=== PATIENT | female | born 2000 | race Caucasian/White ===

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

== ENCOUNTER 2025-10-19 09:59 | Inpatient (IN) | payer SELFPAY ==
[2025-10-19] VITALS (63 sets, daily range): BP systolic 130–202; BP diastolic 85–125; PULSE 107–136; RESP 15–31; TEMP 36.4–37.1; O2SAT 97–100; BMI 53.4
--- NOTE | 2025-10-19 10:21 | CTR_ITS ---
CT/CT abdomen pelvis w con* [id number] PROCEDURE INFORMATION: Exam: CT Abdomen And Pelvis With Contrast Exam date and time: 10/19/2025 12:01 PM Age: 24 years old Clinical indication: Other: Uppper abd pain; Prior surgery; Surgery date: 6+ months; Surgery type: Gallbladder; Additional info: Severe upper abd pain, HX of pancreatitis TECHNIQUE: Imaging protocol: Computed tomography of the abdomen and pelvis with contrast. Radiation optimization: All CT scans at this facility use at least one of these dose optimization techniques: automated exposure control; mA and/or kV adjustment per patient size (includes targeted exams where dose is matched to clinical indication); or iterative reconstruction. Contrast material: [id number]; Contrast volume: 100 ml; Contrast route: INTRAVENOUS (IV); COMPARISON: CT angio chest PE protcl [id number] 11/06/2020 1:37 AM RADIATION DOSE METRICS: Total DLP (mGy-cm): 1178.3 FINDINGS: Diaphragm: There is a small amount of fluid which is probably free fluid between the left hemidiaphragm and splenic surface. Liver: Normal. No mass. Gallbladder and biliary ducts: Cholecystectomy. Pancreas: The pancreas is mildly edematous. Adjacent and possibly arising from the tail of the pancreas and situated between the gastric wall and spleen is a 4 x 2.7 cm slightly thick-walled cystic structure. This extends to the splenic hilum. There are rounded areas of diminished attenuation within the spleen which probably represent extension of a pancreatic pseudocyst. A small amount of subcapsular fluid is present as well adjacent to the upper spleen. Spleen: See pancreas above. Adrenal glands: Normal. No mass. Kidneys and ureters: Normal. No hydronephrosis. Stomach and bowel: See Pancreas finding. Appendix: No evidence of appendicitis. Intraperitoneal space: See Spleen finding. Vasculature: Unremarkable. No abdominal aortic aneurysm. Lymph nodes: Unremarkable. No enlarged lymph nodes. Urinary bladder: Unremarkable as visualized. Reproductive: Unremarkable as visualized. Bones/joints: Unremarkable. No acute fracture. Soft tissues: Unremarkable. Incompletely imaged mild stranding of the fat in the mons pubis on the left side, incompletely imaged cellulitis or other infection unlikely. IMPRESSION: 1. 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 2. Slight ascites localized adjacent to the spleen.
--- NOTE | 2025-10-19 10:24 | ED_ITS ---
Documented by User: DEISI Linton 10/19/25 13:21 HPI - Abdominal Pain 2 General: Chief Complaint: Abdominal Pain Stated Complaint: abd pain, sob, n/v/d/f Time Seen by Provider: 10/19/25 10:05 Source: patient Mode of arrival: ambulatory Limitations: no limitations History of Present Illness: Patient is a 24-year-old female with past medical history of type 2 diabetes gallstone induced pancreatitis who presents to the emergency department complaining of severe upper abdominal pain for the past 3 days. States that a few months ago, while living in [place], she had her gallbladder removed due to episode of pancreatitis from gallstones, has been issue free up until the last few days. She notes severe upper/epigastric pain radiating to the back, comparable to her prior episodes of pancreatitis. Denies any alcohol consumption. She is a type II diabetic on Humalog, Accu-Chek at bedside currently 352. She is appearing in acute distress secondary to pain, tachypneic, tachycardic, and hypertensive likely secondary to her symptoms. She notes significant nausea and vomiting, and has not had a bowel movement in a couple of days. Fevers also reported at home. Shortness of breath, no chest pain. No urinary symptoms, no abdominal or flank bruising, no altered mentation, no other symptoms to note at this time. MD elicited complaint: abdominal pain Pertinent past history: other (Diabetes, pancreatitis) Onset (ago): day(s) Pain Consistency: constant Location: Epigastric Severity: severe Quality: stabbing and sharp Radiation: back Context: history of similar episodes Associated Symptoms: Reports constipation, fever(s), nausea and vomiting; Denies bloating, change in stool character, chills, diarrhea, dysuria and hematochezia Related Data Home Medications ?Medication ?Instructions ?Recorded ?Confirmed Humalog U-200 See Rx Instructions .Route . COMPLEX 10/19/25 10/19/25 Allergies Allergy/AdvReac Type Severity Reaction Status Date / Time No Known Allergies Allergy Verified 11/06/20 00:12 Review of Systems 2 General: Reports: 10 or more systems reviewed and unremarkable except in HPI and below Const: Reports: fever(s); Denies: chills, change in appetite, change in weight or diaphoresis ENMT: Denies: throat pain or hoarseness Card: Denies: chest pain, palpitations or lightheadedness Resp: Reports: dyspnea; Denies: productive cough or wheezing GI: Reports: abdominal pain, nausea, vomiting and constipation; Denies: diarrhea, bloating, change in stool character or hematochezia : Denies: flank pain, difficulty voiding, dysuria, urinary frequency or urinary urgency Musc: Reports: back pain; Denies: neck pain Skin/Breast: Denies: rash or new lesions Neuro: Denies: headache(s) or dizziness PFSH ED 2 PFSH: Medical History DM type 2 (diabetes mellitus, type 2) Surgical History No pertinent past surgical history Physical Exam 2 Const: COMMON NORMALS: patient oriented x3 and alert GENERAL APPEARANCE: c ooperative and anxious ORIENTATION/CONSCIOUSNESS: Yes awake OTHER: In acute distress secondary to pain, morbidly obese HENMT: COMMON NORMALS: normocephalic and atraumatic HEAD & SCALP: n ormocephalic and atraumatic OTHER: Moist oral mucous Eye: COMMON NORMALS: Equal, round and reactive pupils present, EOMs intact bilaterally and conjunctivae normal CONJUNCTIVA: Yes conjunctivae normal P UPIL: Yes Equal, round and reactive pupils present Neck/C-Spine: COMMON NORMALS: full ROM, supple and no meningeal signs Resp: COMMON NORMALS: No retractions, No use of accessory muscles and clear to auscultation bilaterally EFFORT & INSPECTION: Yes tachypneic AUSCULTATION: clear to auscultation bilaterally, no crackles, no rales, no rhonchi and no wheezes Cardio: COMMON NORMALS: regular rhythm, No gallops present (Cardio), No clicks present (Cardio), No murmurs present (Cardio) and No rub (Cardio) RATE: t achycardic RHYTHM: regular rhythm GI: COMMON NORMALS: Soft to palpation and no masses INSPECTION: Yes central obesity AUSCULTATION: Yes normoactive bowel sounds PALPATION: Yes Soft to palpation and Yes Tenderness to palpation present (GI) (Severe epigastric tenderness to palpation) RECTAL EXAM: deferred OTHER: Negative Garces Arreola sign. Negative Aldrich sign. : COMMON NORMALS: Yes no CVA tenderness BLADDER/KIDNEY EXAM: Yes no CVA tenderness Back/Pelvis: COMMON NORMALS: no CVA tenderness Extremity: COMMON NORMALS: normal to inspection and full ROM Neuro: COMMON NORMALS: patient oriented x3, moves all extremities, no focal motor deficits and no sensory deficits noted SENSORIUM/ORIENTATION: Yes alert MENINGEAL SIGNS: Yes no meningeal signs Psych: COMMON NORMALS: mental status grossly normal, cooperative and speech normal SPEECH: Yes normal speech Skin: COMMON NORMALS: no rashes or lesions noted GENERAL SKIN EXAM: no rashes or lesions noted Course 2 Vital Signs: Vital signs: Vital Signs Temperature 98.8 F 10/19/25 10:23 Pulse Rate 111 H 10/19/25 13:12 Respiratory Rate 20 H 10/19/25 12:15 Blood Pressure 156/90 10/19/25 13:12 Pulse Oximetry 100 10/19/25 13:12 Oxygen Delivery Me thod Room Air 10/19/25 13:12 MDM - Abdominal Pain Medical Decision Making This patient with 3 days of epigastric pain associated with nausea vomiting, comparable to prior incident of pancreatitis which she states she had her gallbladder removed for in [place] a few months ago. States that she had a lodged gallstone that caused her pancreatitis at that time, however is a type II diabetic and does report a history of DKA. Presents in acute distress, she is tachycardic, tachypneic, extremely hypertensive and in severe pain. ABG showing severe metabolic acidosis with anion gap, initial blood sugar was 352. IVs established, serum ketones positive and DKA protocol began. There is no significant electrolyte derangement, other than sodium being 130. Lipase is elevated to 226 and abdomen and pelvis CT demonstrating acute pancreatitis with evidence of pancreatic tail cyst. She does note improvement of symptoms following pain meds and nausea meds here in the emergency department. I spoke to Dr. Barrios, hospitalist, excepting the patient into the ICU. Dr. Steele consulted on this patient in the emergency department, sees the patient as well, and agrees with disposition at this time and will place admit orders. Patient agreed with admission plan and all other questions and concerns addressed at this time. Lab Data 10/19/25 10:27 10/19/25 10:27 Labs/Radiology: Radiology Impressions Abdomen/Pelvis CT 10/19/25 10:21 PROCEDURE INFORMATION: Exam: CT Abdomen And Pelvis With Contrast Exam date and time: 10/19/2025 12:01 PM Age: 24 years old Clinical indication: Other: Uppper abd pain; Prior surgery; Surgery date: 6+ months; Surgery type: Gallbladder; Additional info: Severe upper abd pain, HX of pancreatitis TECHNIQUE: Imaging protocol: Computed tomography of the abdomen and pelvis with contrast. Radiation optimization: All CT scans at this facility use at least one of these dose optimization techniques: automated exposure control; mA and/or kV adjustment per patient size (includes targeted exams where dose is matched to clinical indication); or iterative reconstruction. Contrast material: [id number]; Contrast volume: 100 ml; Contrast route: INTRAVENOUS (IV); COMPARISON: CT angio chest PE protcl [id number] 11/06/2020 1:37 AM RADIATION DOSE METRICS: Total DLP (mGy-cm): 1178.3 FINDINGS: Diaphragm: There is a small amount of fluid which is probably free fluid between the left hemidiaphragm and splenic surface. Liver: Normal. No mass. Gallbladder and biliary ducts: Cholecystectomy. Pancreas: The pancreas is mildly edematous. Adjacent and possibly arising from the tail of the pancreas and situated between the gastric wall and spleen is a 4 x 2.7 cm slightly thick-walled cystic structure. This extends to the splenic hilum. There are rounded areas of diminished attenuation within the spleen which probably represent extension of a pancreatic pseudocyst. A small amount of subcapsular fluid is present as well adjacent to the upper spleen. Spleen: See pancreas above. Adrenal glands: Normal. No mass. Kidneys and ureters: Normal. No hydronephrosis. Stomach and bowel: See Pancreas finding. Appendix: No evidence of appendicitis. Intraperitoneal space: See Spleen finding. Vasculature: Unremarkable. No abdominal aortic aneurysm. Lymph nodes: Unremarkable. No enlarged lymph nodes. Urinary bladder: Unremarkable as visualized. Reproductive: Unremarkable as visualized. Bones/joints: Unremarkable. No acute fracture. Soft tissues: Unremarkable. Incompletely imaged mild stranding of the fat in the mons pubis on the left side, incompletely imaged cellulitis or other infection unlikely. IMPRESSION: 1. 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 2. Slight ascites localized adjacent to the spleen. Chest X-Ray 10/19/25 12:46 IMPRESSION: No acute findings. Laboratory Results WBC 11.87 10^3/uL (3.29-11.43) H 10/19/25 10:27 RBC 5.85 10^6/uL (3.85-5.65) H 10/19/25 10:27 Hgb 16.30 g/dL (11.27-16.99) 10/19/25 10:27 Hct 50.1 % (36-47) H 10/19/25 10:27 MCV 85.6 fl (85-98) 10/19/25 10:27 MCH 27.9 pg (27-33) 10/19/25 10:27 MCHC 32.5 g/dL (30-55) 10/19/25 10:27 RDW 15.2 % (12.1-15.1) H 10/19/25 10:27 Plt Count 291 10^3/cmm (157-399) 10/19/25 10:27 MPV 9.6 fL (7.4-10.4) 10/19/25 10:27 Neut % (Auto) 74.0 % 10/19/25 10:27 Lymph % (Auto) 13.1 % 10/19/25 10:27 Deuel % (Auto) 6.6 % 10/19/25 10:27 Eos % (Auto) 0.2 % 10/19/25 10:27 Baso % (Auto) 0.8 % 10/19/25 10:27 Neut # (Auto) 8.80 10^3/uL (1.8-7.7) H 10/19/25 10:27 Lymph # (Auto) 1.6 10^3/uL (0.8-4.8) 10/19/25 10:27 Deuel # (Auto) 0.8 10^3/uL (0.2-0.9) 10/19/25 10:27 Eos # (Auto) 0.0 10^3/uL (0.0-0.8) 10/19/25 10:27 Baso # (Auto) 0.1 10^3/uL (0.0-0.1) 10/19/25 10:27 Nucleated RBC % (auto) 0 % 10/19/25 10:27 Nucleated RBCs # 0.0 /100WBC 10/19/25 10:27 Specimen Type Arterial 10/19/25 11:20 Sample Site Brachial, left 10/19/25 11:20 ABG pH 7.07 (7.35-7.45) L* 10/19/25 11:20 ABG pCO2 18.0 mmHg (35-45) L* 10/19/25 11:20 ABG pO2 122.0 mmHg (80.0-100.0) H 10/19/25 11:20 ABG PO2/FiO2 Ratio 580 10/19/25 11:20 ABG HCO3 5.2 mmol/L (22-26) L 10/19/25 11:20 ABG O2 Saturation 98.7 10/19/25 11:20 ABG Base Excess -23.1 mmol/L (-2.0-2.0) L 10/19/25 11:20 Robert Test N/a 10/19/25 11:20 A-a O2 Gradient 0.2 mmHg (5-10) L 10/19/25 11:20 Hematocrit 45.7 % (37-47) 10/19/25 11:20 Hgb O2 Saturation 97.2 % (95-100) 10/19/25 11:20 Carboxyhemoglobin 1.2 %THgb (0.4-20.1) 10/19/25 11:20 Methemoglobin 0.3 % (0.4-1.5) L 10/19/25 11:20 Total Hemoglobin 14.9 g/dL (12-16) 10/19/25 11:20 Sodium 139.0 mmol/L (131-143) 10/19/25 11:20 Potassium 3.2 mmol/L (3.5-5.0) L 10/19/25 11:20 Glucose 308.0 mg/dL (70-115) H 10/19/25 11:20 Ionized Calcium 1.2 mmol/L (1.1-1.4) 10/19/25 11:20 O2 Delivery Device Ra 10/19/25 11:20 FiO2 21.0 % 10/19/25 11:20 Breakdown Person ID glc 10/19/25 11:20 Sodium 130 mmol/L (136-145) L 10/19/25 10:27 Potassium 4.1 mmol/L (3.5-5.1) 10/19/25 10:27 Chloride 98 mmol/L (98-107) 10/19/25 10:27 Carbon Dioxide 5 mmol/L (22-29) L* 10/19/25 10:27 Anion Gap 31.1 (5-19) H 10/19/25 10:27 BUN 6 mg/dL (6-20) 10/19/25 10:27 Creatinine 0.9 mg/dL (0.5-0.9) 10/19/25 10:27 GFR Calculation 77.6 mL/min (90-130) L 10/19/25 10:27 Glucose 332 mg/dL (65-115) H 10/19/25 10:27 POC Glucose 295 mg/dL (70-110) H 10/19/25 13:06 Calculated Osmolality 281 mOsm/kg (285-295) L 10/19/25 10:27 Lactic Acid 1.3 mmol/L (0.5-2.2) 10/19/25 10:27 Calcium 9.0 mg/dL (8.5-10.5) 10/19/25 10:27 Magnesium 2.3 mg/dL (1.7-2.3) 10/19/25 10:27 Total Bilirubin 0.2 mg/dL (0.15-1.2) 10/19/25 10:27 AST 9 U/L (0-32) 10/19/25 10:27 ALT 12 U/L (0-33) 10/19/25 10:27 Alkaline Phosphatase 144 U/L (35-105) H 10/19/25 10:27 Total Protein 8.2 g/dL (6.6-8.7) 10/19/25 10:27 Albumin 3.6 g/dL (3.5-5.2) 10/19/25 10:27 Globulin 4.6 g/dL (1.3-4.6) 10/19/25 10:27 Triglycerides 1184 mg/dL (0-150) H 10/19/25 10:27 Cholesterol 315 mg/dL (0-200) H 10/19/25 10:27 LDL Cholesterol, Calc Not Reportable 10/19/25 10:27 HDL Cholesterol 20 mg/dL (60-100) L 10/19/25 10:27 LDL/HDL Ratio Not Reportable 10/19/25 10:27 Cholesterol/HDL Ratio 15.75 mg/dL (0.0-4.40) H 10/19/25 10:27 Lipase 226 U/L (13-60) H 10/19/25 10:27 HCG, Qual Negative (Negative) 10/19/25 10:27 Urine Color Yellow (Yellow) 10/19/25 11:42 Urine Appearance Clear (CLEAR) 10/19/25 11:42 Urine pH 5.5 (5-7) 10/19/25 11:42 Ur Specific [place] 1.026 (1.005-1.030) 10/19/25 11:42 Urine Protein 2+ (Negative) A 10/19/25 11:42 Urine Glucose (UA) 1+ (Normal) H 10/19/25 11:42 Urine Ketones 4+ (Negative) 10/19/25 11:42 Urine Blood 1+ (Negative) A 10/19/25 11:42 Urine Nitrate Negative (Negative) 10/19/25 11:42 Urine Bilirubin Negative (Negative) 10/19/25 11:42 Urine Urobilinogen 1.0 mg/dL (Negative) 10/19/25 11:42 Ur Leukocyte Esterase Negative (Negative) 10/19/25 11:42 Urine RBC 3-5 /hpf (0-2) 10/19/25 11:42 Urine WBC 11-20 /hpf (0-5) H 10/19/25 11:42 Ur Squamous Epith Cells 0-5 /hpf (0-5) 10/19/25 11:42 Amorphous Sediment Not Reportable 10/19/25 11:42 Urine Bacteria Trace /hpf (NONE) 10/19/25 11:42 Hyaline Casts 13.22 /lpf 10/19/25 11:42 Fine Granular Casts 0-4 /lpf H 10/19/25 11:42 Urine Opiates Screen Negative ng/mL (Negative) 10/19/25 11:42 Ur Barbiturates Screen Negative ng/mL (Negative) 10/19/25 11:42 Ur Phencyclidine Scrn Negative ng/mL (Negative) 10/19/25 11:42 Ur Amphetamines Screen Negative ng/mL (Negative) 10/19/25 11:42 U Benzodiazepines Scrn Negative ng/mL (Negative) 10/19/25 11:42 Urine Cocaine Screen Negative ng/mL (Negative) 10/19/25 11:42 U Marijuana (THC) Screen Negative ng/mL (Negative) 10/19/25 11:42 Ethyl Alcohol < 10 mg/dL (0-10) 10/19/25 10:27 Serum Ketones Positive (Negative) H 10/19/25 11:32 All radiology interpretation(s) finalized by discharge Discharge Plan Discharge Patient Disposition: Admitted As Inpatient Admit Provider: Hill Barrios Clinical Impression: DKA (diabetic ketoacidosis), Pancreatitis Condition: Stable Coding Level of Care Code ED R Programmer for Chg Fwd Documented by User: Sandee Steele MD 10/19/25 13:42 HPI - Abdominal Pain 2 General: Chief Complaint: Abdominal Pain Stated Complaint: abd pain, sob, n/v/d/f Time Seen by Provider: 10/19/25 10:05 Related Data Home Medications ?Medication ?Instructions ?Recorded ?Confirmed Humalog U-200 See Rx Instructions .Route . COMPLEX 10/19/25 10/19/25 Allergies Allergy/AdvReac Type Severity Reaction Status Date / Time No Known Allergies Allergy Verified 11/06/20 00:12 [facility] ED 2 PFSH: Medical History DM type 2 (diabetes mellitus, type 2) Surgical History No pertinent past surgical history Course 2 Vital Signs: Vital signs: Vital Signs Temperature 98.8 F 10/19/25 10:23 Pulse Rate 111 H 10/19/25 13:12 Respiratory Rate 20 H 10/19/25 12:15 Blood Pressure 156/90 10/19/25 13:12 Pulse Oximetry 100 10/19/25 13:12 Oxygen Delivery Me thod Room Air 10/19/25 13:12 MDM - Abdominal Pain Medical Decision Making This patient with 3 days of epigastric pain associated with nausea vomiting, comparable to prior incident of pancreatitis which she states she had her gallbladder removed for in [place] a few months ago. States that she had a lodged gallstone that caused her pancreatitis at that time, however is a type II diabetic and does report a history of DKA. Presents in acute distress, she is tachycardic, tachypneic, extremely hypertensive and in severe pain. ABG showing severe metabolic acidosis with anion gap, initial blood sugar was 352. IVs established, serum ketones positive and DKA protocol began. There is no significant electrolyte derangement, other than sodium being 130. Lipase is elevated to 226 and abdomen and pelvis CT demonstrating acute pancreatitis with evidence of pancreatic tail cyst. She does note improvement of symptoms following pain meds and nausea meds here in the emergency department. I spoke to Dr. Barrios, hospitalist, excepting the patient into the ICU. Dr. Steele consulted on this patient in the emergency department, sees the patient as well, and agrees with disposition at this time and will place admit orders. Patient agreed with admission plan and all other questions and concerns addressed at this time. I saw patient with the above midlevel agree with his history and physical. Patient has pancreatitis along with DKA she was started on insulin drip. Given IV fluids. When I saw patient her pain had improved we will admit to the ICU to Dr. Paez. Medical Records I reviewed the patient's medical records. Lab Data I reviewed the patient's lab results. 10/19/25 10:27 10/19/25 10:27 Labs/Radiology: Radiology Impressions Abdomen/Pelvis CT 10/19/25 10:21 PROCEDURE INFORMATION: Exam: CT Abdomen And Pelvis With Contrast Exam date and time: 10/19/2025 12:01 PM Age: 24 years old Clinical indication: Other: Uppper abd pain; Prior surgery; Surgery date: 6+ months; Surgery type: Gallbladder; Additional info: Severe upper abd pain, HX of pancreatitis TECHNIQUE: Imaging protocol: Computed tomography of the abdomen and pelvis with contrast. Radiation optimization: All CT scans at this facility use at least one of these dose optimization techniques: automated exposure control; mA and/or kV adjustment per patient size (includes targeted exams where dose is matched to clinical indication); or iterative reconstruction. Contrast material: [id number]; Contrast volume: 100 ml; Contrast route: INTRAVENOUS (IV); COMPARISON: CT angio chest PE protcl [id number] 11/06/2020 1:37 AM RADIATION DOSE METRICS: Total DLP (mGy-cm): 1178.3 FINDINGS: Diaphragm: There is a small amount of fluid which is probably free fluid between the left hemidiaphragm and splenic surface. Liver: Normal. No mass. Gallbladder and biliary ducts: Cholecystectomy. Pancreas: The pancreas is mildly edematous. Adjacent and possibly arising from the tail of the pancreas and situated between the gastric wall and spleen is a 4 x 2.7 cm slightly thick-walled cystic structure. This extends to the splenic hilum. There are rounded areas of diminished attenuation within the spleen which probably represent extension of a pancreatic pseudocyst. A small amount of subcapsular fluid is present as well adjacent to the upper spleen. Spleen: See pancreas above. Adrenal glands: Normal. No mass. Kidneys and ureters: Normal. No hydronephrosis. Stomach and bowel: See Pancreas finding. Appendix: No evidence of appendicitis. Intraperitoneal space: See Spleen finding. Vasculature: Unremarkable. No abdominal aortic aneurysm. Lymph nodes: Unremarkable. No enlarged lymph nodes. Urinary bladder: Unremarkable as visualized. Reproductive: Unremarkable as visualized. Bones/joints: Unremarkable. No acute fracture. Soft tissues: Unremarkable. Incompletely imaged mild stranding of the fat in the mons pubis on the left side, incompletely imaged cellulitis or other infection unlikely. IMPRESSION: 1. 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 2. Slight ascites localized adjacent to the spleen. Chest X-Ray 10/19/25 12:46 IMPRESSION: No acute findings. Laboratory Results WBC 11.87 10^3/uL (3.29-11.43) H 10/19/25 10:27 RBC 5.85 10^6/uL (3.85-5.65) H 10/19/25 10:27 Hgb 16.30 g/dL (11.27-16.99) 10/19/25 10:27 Hct 50.1 % (36-47) H 10/19/25 10:27 MCV 85.6 fl (85-98) 10/19/25 10:27 MCH 27.9 pg (27-33) 10/19/25 10:27 MCHC 32.5 g/dL (30-55) 10/19/25 10:27 RDW 15.2 % (12.1-15.1) H 10/19/25 10:27 Plt Count 291 10^3/cmm (157-399) 10/19/25 10:27 MPV 9.6 fL (7.4-10.4) 10/19/25 10:27 Neut % (Auto) 74.0 % 10/19/25 10:27 Lymph % (Auto) 13.1 % 10/19/25 10:27 Deuel % (Auto) 6.6 % 10/19/25 10:27 Eos % (Auto) 0.2 % 10/19/25 10:27 Baso % (Auto) 0.8 % 10/19/25 10:27 Neut # (Auto) 8.80 10^3/uL (1.8-7.7) H 10/19/25 10:27 Lymph # (Auto) 1.6 10^3/uL (0.8-4.8) 10/19/25 10:27 Deuel # (Auto) 0.8 10^3/uL (0.2-0.9) 10/19/25 10:27 Eos # (Auto) 0.0 10^3/uL (0.0-0.8) 10/19/25 10:27 Baso # (Auto) 0.1 10^3/uL (0.0-0.1) 10/19/25 10:27 Nucleated RBC % (auto) 0 % 10/19/25 10:27 Nucleated RBCs # 0.0 /100WBC 10/19/25 10:27 Specimen Type Arterial 10/19/25 11:20 Sample Site Brachial, left 10/19/25 11:20 ABG pH 7.07 (7.35-7.45) L* 10/19/25 11:20 ABG pCO2 18.0 mmHg (35-45) L* 10/19/25 11:20 ABG pO2 122.0 mmHg (80.0-100.0) H 10/19/25 11:20 ABG PO2/FiO2 Ratio 580 10/19/25 11:20 ABG HCO3 5.2 mmol/L (22-26) L 10/19/25 11:20 ABG O2 Saturation 98.7 10/19/25 11:20 ABG Base Excess -23.1 mmol/L (-2.0-2.0) L 10/19/25 11:20 Robert Test N/a 10/19/25 11:20 A-a O2 Gradient 0.2 mmHg (5-10) L 10/19/25 11:20 Hematocrit 45.7 % (37-47) 10/19/25 11:20 Hgb O2 Saturation 97.2 % (95-100) 10/19/25 11:20 Carboxyhemoglobin 1.2 %THgb (0.4-20.1) 10/19/25 11:20 Methemoglobin 0.3 % (0.4-1.5) L 10/19/25 11:20 Total Hemoglobin 14.9 g/dL (12-16) 10/19/25 11:20 Sodium 139.0 mmol/L (131-143) 10/19/25 11:20 Potassium 3.2 mmol/L (3.5-5.0) L 10/19/25 11:20 Glucose 308.0 mg/dL (70-115) H 10/19/25 11:20 Ionized Calcium 1.2 mmol/L (1.1-1.4) 10/19/25 11:20 O2 Delivery Device Ra 10/19/25 11:20 FiO2 21.0 % 10/19/25 11:20 Breakdown Person ID glc 10/19/25 11:20 Sodium 130 mmol/L (136-145) L 10/19/25 10:27 Potassium 4.1 mmol/L (3.5-5.1) 10/19/25 10:27 Chloride 98 mmol/L (98-107) 10/19/25 10:27 Carbon Dioxide 5 mmol/L (22-29) L* 10/19/25 10:27 Anion Gap 31.1 (5-19) H 10/19/25 10:27 BUN 6 mg/dL (6-20) 10/19/25 10:27 Creatinine 0.9 mg/dL (0.5-0.9) 10/19/25 10:27 GFR Calculation 77.6 mL/min (90-130) L 10/19/25 10:27 Glucose 332 mg/dL (65-115) H 10/19/25 10:27 POC Glucose 295 mg/dL (70-110) H 10/19/25 13:06 Calculated Osmolality 281 mOsm/kg (285-295) L 10/19/25 10:27 Lactic Acid 1.3 mmol/L (0.5-2.2) 10/19/25 10:27 Calcium 9.0 mg/dL (8.5-10.5) 10/19/25 10:27 Magnesium 2.3 mg/dL (1.7-2.3) 10/19/25 10:27 Total Bilirubin 0.2 mg/dL (0.15-1.2) 10/19/25 10:27 AST 9 U/L (0-32) 10/19/25 10:27 ALT 12 U/L (0-33) 10/19/25 10:27 Alkaline Phosphatase 144 U/L (35-105) H 10/19/25 10:27 Total Protein 8.2 g/dL (6.6-8.7) 10/19/25 10:27 Albumin 3.6 g/dL (3.5-5.2) 10/19/25 10:27 Globulin 4.6 g/dL (1.3-4.6) 10/19/25 10:27 Triglycerides 1184 mg/dL (0-150) H 10/19/25 10:27 Cholesterol 315 mg/dL (0-200) H 10/19/25 10:27 LDL Cholesterol, Calc Not Reportable 10/19/25 10:27 HDL Cholesterol 20 mg/dL (60-100) L 10/19/25 10:27 LDL/HDL Ratio Not Reportable 10/19/25 10:27 Cholesterol/HDL Ratio 15.75 mg/dL (0.0-4.40) H 10/19/25 10:27 Lipase 226 U/L (13-60) H 10/19/25 10:27 HCG, Qual Negative (Negative) 10/19/25 10:27 Urine Color Yellow (Yellow) 10/19/25 11:42 Urine Appearance Clear (CLEAR) 10/19/25 11:42 Urine pH 5.5 (5-7) 10/19/25 11:42 Ur Specific [place] 1.026 (1.005-1.030) 10/19/25 11:42 Urine Protein 2+ (Negative) A 10/19/25 11:42 Urine Glucose (UA) 1+ (Normal) H 10/19/25 11:42 Urine Ketones 4+ (Negative) 10/19/25 11:42 Urine Blood 1+ (Negative) A 10/19/25 11:42 Urine Nitrate Negative (Negative) 10/19/25 11:42 Urine Bilirubin Negative (Negative) 10/19/25 11:42 Urine Urobilinogen 1.0 mg/dL (Negative) 10/19/25 11:42 Ur Leukocyte Esterase Negative (Negative) 10/19/25 11:42 Urine RBC 3-5 /hpf (0-2) 10/19/25 11:42 Urine WBC 11-20 /hpf (0-5) H 10/19/25 11:42 Ur Squamous Epith Cells 0-5 /hpf (0-5) 10/19/25 11:42 Amorphous Sediment Not Reportable 10/19/25 11:42 Urine Bacteria Trace /hpf (NONE) 10/19/25 11:42 Hyaline Casts 13.22 /lpf 10/19/25 11:42 Fine Granular Casts 0-4 /lpf H 10/19/25 11:42 Urine Opiates Screen Negative ng/mL (Negative) 10/19/25 11:42 Ur Barbiturates Screen Negative ng/mL (Negative) 10/19/25 11:42 Ur Phencyclidine Scrn Negative ng/mL (Negative) 10/19/25 11:42 Ur Amphetamines Screen Negative ng/mL (Negative) 10/19/25 11:42 U Benzodiazepines Scrn Negative ng/mL (Negative) 10/19/25 11:42 Urine Cocaine Screen Negative ng/mL (Negative) 10/19/25 11:42 U Marijuana (THC) Screen Negative ng/mL (Negative) 10/19/25 11:42 Ethyl Alcohol < 10 mg/dL (0-10) 10/19/25 10:27 Serum Ketones Positive (Negative) H 10/19/25 11:32 Critical Care Time 2 Critical Care Time: Critical Care Time: Yes Total Critical Care Time: 40 Attestation: The high probability of a clinically significant, sudden or life threatening deterioration of the patient's endocrine system(s) required my full and direct attention, intervention and personal management. The critical care time is as shown. This time is in addition to time spent performing any reported procedures but includes the following: [x] Data and vital sign review and interpretation [x] Patient assessment, examination and intervention [x] Documentation [x] Medication orders and management Discharge Plan Discharge Patient Disposition: Admitted As Inpatient Admit Provider: Hill Barrios Clinical Impression: DKA (diabetic ketoacidosis), Pancreatitis Condition: Stable Coding Level of Care Code ED R Programmer for Hubert Goodman
[2025-10-19] MEDS: HYDROmorphone 0.5 MG/0.5 ML INJ 1 MG IVP (10:33)
[2025-10-19] MEDS: ondansetron 2 mg/ML SDV 2 mL 4 MG IVP ×3 (10:34→23:20)
--- OUTSIDE RECORDS SUMMARY | 2025-10-19 10:39 | XMS_ITS | Clinical Summary ---
Author Organization [facility] Address [address] [place] [address] Care Team Providers Care Paste Thinner Name Role Phone Unavailable Primary Care Provider Unavailabl e Allergies Active Allergy Reactions Criticality Noted Date Comments Insulin Aspart Hives High 06/25/2024 Morphine Hives High 03/02/2025 Promethazine Other (See Comments),Hallucination Low 07/09/2024 Blurry vision Medications ibuprofen (MOTRIN) 200 mg tablet Take 800 mg by mouth every 6 hours as needed for Pain, Mild. 9 Active albuterol HFA 90 mcg inhalerIndicatio ns:Mild intermittent asthma without complication Take 2 Puffs by inhalation every 6 hours as needed for Shortness of Breath. 18 Gram 11 0 Active alcohol Pads, MedicatedIndicat ions:Uncontrolle d type 2 diabetes mellitus without complication, without long-term current use of insulin E11.65; Check blood sugar TID; substitution allowed. 100 Each PRN 8 Active lancets (OneTouch Delica Lancets) 30 gauge To be used to check blood glucose up to 4 times daily.. 400 Each 3 8 Active Insulin [place], Disposable, 31 gauge x 1/4 Needle TO BE USED FOR DAILY INSULIN INJECTIONS UP TO 4 TIMES DAILY. 400 Each 3 9 Active blood sugar diagnostic (OneTouch Verio test strips) Strip TO BE USED TO CHECK BLOOD GLUCOSE UP TO 4 TIMES DAILY.. 400 Each 3 9 Active insulin lispro (HumaLOG,ADMELOG ) 100 unit/mL vial Inject by subcutaneous injection. Insulin pump Active verapamil HCl (VERAPAMIL, BULK, MISC) by Mis.(Non-Drug; Combo Route) route daily. 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 Gallstone pancreatitis 06/28/2024 Hyponatremia 06/28/2024 Obesity 06/06/2023 Elevated BP without diagnosis of hypertension Vitamin D insufficiency 01/13/2019 Dyslipidemia 07/10/2018 MRSA (methicillin resistant staph aureus) cultur e positive 03/28/2017 Mild intermittent asthma without complication Encounters Date Type Department Care Team Description 09/30/2025 External Device Data [facility] ABSTRACTION Provider, Abstract 09/23/2025 External Device Data [facility] ABSTRACTION Provider, Abstract from Last 3 Months Immunizations Immunization Administration Dates Next Due Influenza Vaccine Quad Split 3+ Yrs IM [facility] 09/04 Influenza Vaccine Quad Split 3+ Yrs Im 8 Influenza Vaccine Quad Split 3+ Yrs PF IM [facility] Family History Medical History Relation Name Comments Asthma Brother Diabetes Father Diabetes Mother Heart Disease Paternal Grandfather Heart Disease Paternal Grandmother Relation Name Status Comments Brother Alive Father Alive Mother Alive Paternal Grandfather Alive Paternal Grandmother Alive Social History Tobacco Use Types Packs/Day Years Used Date Smoking Tobacco: Never Smokeless Tobacco: Never Tobacco Cessation:Counseling Given: Not Answered Alcohol Use Standard Drinks/Week Comments No 0 (1 standard drink = 0.6 oz pur e alcohol) Feeling Safe Answer Date Recorded Are you in a relationship wi th someone who hurts you emotionally and/or physically? 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 Gender Identity Not on file Sexual Orientation Not on file Last Filed Vital Signs Vital Sign Reading Time Taken Comments Blood Pressure 178/109 03/02/2025 9:15 AM CDT Pulse 127 03/02/2025 9:15 AM CDT Temperature 35.8 C (96.4 F) 03/02/2025 9:15 AM CDT Respiratory Rate 20 03/02/2025 9:15 AM CDT Oxygen Saturation 100% 03/02/2025 9:15 AM CDT Inhaled Oxygen Concentration - - Weight 140.8 kg (310 lb 6.4 oz) 03/02/2025 8:34 AM CDT Height 157.5 cm (5' 2 ) 03/02/2025 8:34 AM CDT Body Mass Index 56.77 03/02/2025 8:34 AM CDT Plan of Treatment Health Maintenance Due Date Last Done Comments CHLAMYDIA SCREENING (ANNUAL) 11-24 YEARS 2012 HPV VACCINES (1 - 3-dose series) 2016 DIABETES ANNUAL RETINAL EXAM 2019 DTAP/TDAP/TD VACCINES (1 - Tdap) 2020 HEPATITIS B VACCINES (1 of 3 - 19+ 3-dose series) 2020 DIABETES ANNUAL FOOT EXAM 11/28/2020 11/28/2019 DIABETES MICROALBUMIN ANNUAL SCREEN 11/28/2020 11/28/2019, 07/10/2018 CERVICAL CANCER SCREENING 2022 HPV/Cotest (21-29) 2022 PAP SMEAR 2022 DIABETES HBA1C Q 6 MONTHS 12/31/20242023, 06/28/2024, 05/16/2024, Additional history exists INFLUENZA VACCINE (#1) 2025 8, 09/04/2016, 08/25/2015 LDL CHOLESTEROL ANNUAL 06/28/2025 4, 01/13/2019, 05/17/2018, Additional history exists Procedures Procedure Name Priority Date/Time Associated Diagnosis Comments LIPID PANEL Routine 06/28/2024 8:45 AM CDT HEMOGLOBIN A1C Routine 06/28/2024 8:45 AM CDT MICROALBUMIN/CREATIN INE RATIO, RANDOM UR Routine 11/28/2019 3:57 PM MILITARY EQUIPMENT SPECIALIST from Last 3 Months or Most Recently Relevant to Health Maintenance Results * (ABNORMAL) HEMOGLOBIN A1C (06/28/2024 8:45 AM CDT) HEMOGLOBIN A1C 8.7(H) <=5.6 % 06/30/2024 10:18 AM CDT [facility] EST. AVG GLUCOSE, A1C 203 mg/dL 06/30/2024 10:18 AM CDT [facility] Blood Venipuncture / Unknown 06/28/2024 8:45 AM CDT 06/28/2024 9:05 AM CDT Narrative [facility] - 06/30/2024 10:18 AM CDT HGB A1C INTERPRETATION NORMAL: <5.7% PRE-DIABETES: 5.7 - 6.4% DIABETES: 6.5% OR GREATER us Gilbert Ling MD CHEMISTRY ORDERABLES Final R esult [facility] CLIA # [id number] [address] [place] [address] [place] [address] * (ABNORMAL) LIPID PANEL (06/28/2024 8:45 AM CDT) CHOLESTEROL 111 <200 mg/dL 06/28/2024 9:55 AM T [facility] TRIGLYCERIDE 141 <150 mg/dL 06/28/2024 9:55 AM [facility] HDL 24(L) 40 - 59 mg/dL 06/28/2024 9:55 AM T [facility] LDL CALCULATED 59 <100 mg/dL 06/28/2024 9:55 AM [facility] NON-HDL CHOLESTEROL 87 <130 mg/dL 06/28/2024 9:55 AM [facility] Blood Venipuncture / Unknown 06/28/2024 8:45 AM T 06/28/2024 9:11 AM CDT Narrative [facility] - 06/28/2024 9:55 AM CDT TOTAL CHOLESTEROL mg/dL Desirable <200 Borderline high 200-239 High >=240 TRIGLYCERIDES mg/dL Normal <150 Borderline high 150-199 High 200-499 Very high >=500 HDL CHOLESTEROL mg/dL Low <40 Normal 40-59 Desirable >=60 NON HDL CHOLESTEROL mg/dL Optimal <130 Near Optimal 130-159 Borderline High 160-189 Very High >=190 CALCULATED LDL mg/dL LDL <70, OPTIMAL if have Atherosclerotic cardiovascular disease (ASCVD) or intermediate or higher (>7.5%) 10 year risk of ASCVD including most adults with diabetes. LDL <100, Optimal in adult patients with low (<7.5%) 10 year ASCVD risk LDL 100-160, Suboptimal LDL >160, High LDL >190, Very high ATPIII Guidelines Reference Ranges for Lipid Panels (NCEP/AMA) . us Gilbert Ling MD CHEMISTRY ORDERABLES Final R esult [facility] CLIA # [id number] [address] [place] [address] [id number] * (ABNORMAL) MICROALBUMIN/CREATININE RATIO, RANDOM UR (11/28/2019 3:57 PM MILITARY EQUIPMENT SPECIALIST) MICROALBUMIN, URINE 2.1 No Reference Range mg/dL 11/28/2019 5:08 PM [facility] CREATININE, URINE 36.9 29.0 - 226.0 mg/dL 11/28/2019 5:08 PM [facility] Comment:Reference Range vari es with fluid intake and diet. MICROALBUMIN/ CREAT RATIO, UR 56.9(H) <25.0 mg/g 11/28/2019 5:08 PM [facility] Urine URINE SPECIMEN OBTAINED BY CLEAN CATCH PROCEDURE / Unknown Collection / Unknown 11/28/2019 3:57 PM MILITARY EQUIPMENT SPECIALIST 11/28/2019 3:58 PM MILITARY EQUIPMENT SPECIALIST Narrative [facility] - 11/28/2019 5:08 PM [facility] Condition Microalbumin/Creat ratio Normal Males <17 Normal Females <25 Microalbuminuria Males 17-299 Microalbuminuria Females 25-299 Overt proteinuria >=300 Maria Elena LIPSCOMB URINE ORDERABLES Final Result [facility] CLIA# [id number] [address] [place] [address] from Last 3 Months or Most Recently Relevant to Health Maintenance Insurance [employer] Advance Directives For more information, please contact: [phone] * Full Code (Latest Code Status on File) Date Activated Date Inactivated Comments 06/28/2024 12:26 AM 06/28/2024 4:59 PM
[2025-10-19 10:56] LABS: Alanine Aminotransferase 12 U/L (0-33); Albumin Level 3.6 g/dL (3.5-5.2); Alkaline Phosphatase 144 U/L (35-105); Aspartate Amino Transferase 9 U/L (0-32); Blood Urea Nitrogen 6 mg/dL (6-20); Calcium 9.0 mg/dL (8.5-10.5); Chloride 98 mmol/L (98-107); Globulin 4.6 g/dL (1.3-4.6); Glucose 332 mg/dL (65-115); Lactic Sepsis W/Reflex 1.3 mmol/L (0.5-2.2); Lipase 226 U/L (13-60); Magnesium 2.3 mg/dL (1.7-2.3); Osmolality Calculated 281 mOsm/kg (285-295); Sodium 130 mmol/L (136-145); Total Protein 8.2 g/dL (6.6-8.7)
[2025-10-19 11:02] LABS: Hematocrit 50.1 % (36-47); Hemoglobin 16.30 g/dL (11.27-16.99); Mean Corpuscular HGB Conc 32.5 g/dL (30-55); Mean Corpuscular Hemoglobin 27.9 pg (27-33); Mean Corpuscular Volume 85.6 fl (85-98); Nucleated Red Blood Cells % 0 %; Platelet Count 291 10^3/cmm (157-399); Red Blood Count 5.85 10^6/uL (3.85-5.65); White Blood Count 11.87 10^3/uL (3.29-11.43)
[2025-10-19 11:04] LABS: HCG, Serum Qual Negative (Negative)
[2025-10-19 11:05] LABS: Carbon Dioxide 5 mmol/L (22-29)
[2025-10-19 11:06] LABS: Anion Gap 31.1 (5-19); Potassium 4.1 mmol/L (3.5-5.1)
[2025-10-19 11:19] LABS: Slide Review Slide Review Perform
[2025-10-19 11:32] LABS: Blood Gas Operator Identificat glc; Blood Gas Sample Site Brachial, left; Blood Gas Sample Type Arterial; Carboxyhemoglobin 1.2 %THgb (0.4-20.1); Glucose Level-ABG 308.0 mg/dL (70-115); HCO3 ABG 5.2 mmol/L (22-26); Ionized Calcium Level - ABG 1.2 mmol/L (1.1-1.4)
[2025-10-19 11:33] LABS: Alveolar-Arterial Oxygen Gradi 0.2 mmHg (5-10); Arterial Blood Gas Hematocrit 45.7 % (37-47); Methemoglobin 0.3 % (0.4-1.5); Oxygen Saturation ABG 98.7; PO2 ABG 122.0 mmHg (80.0-100.0); PO2 FiO2 Ratio Arterial Blood 580; Potassium Level - ABG 3.2 mmol/L (3.5-5.0); Sodium Level - ABG 139.0 mmol/L (131-143)
[2025-10-19 11:53] LABS: Ketone (Acetest) Serum Positive (Negative)
[2025-10-19 11:58] LABS: Glucose Urine UA 1+ (Normal); Nitrate Urine Negative (Negative); Specific Gravity, Urine 1.026 (1.005-1.030)
[2025-10-19 12:00] LABS: Add Urine Microscopic? YES; Universal Test for UA Present (0)
[2025-10-19] MEDS: iohexol 350 mg/mL 500 mL Btl (per mL) IV (12:04)
[2025-10-19 12:15] LABS: UA Slide Review UA Slide Review Perf
[2025-10-19 12:38] LABS: ABG PCO2 18.0 mmHg (35-45); ABG PH Result 7.07 (7.35-7.45)
--- NOTE | 2025-10-19 12:46 | XRR_ITS ---
PROCEDURE INFORMATION: Exam: XR Chest Exam date and time: 10/19/2025 12:48 PM Age: 24 years old Clinical indication: Other: Dka TECHNIQUE: Imaging protocol: Radiologic exam of the chest. Views: 1 view. COMPARISON: CT angio chest PE protcl [id number] 11/06/2020 1:37 AM FINDINGS: Lungs: Unremarkable. No consolidation. Pleural spaces: Unremarkable. No pleural effusion. No pneumothorax. Heart/Mediastinum: Unremarkable. No cardiomegaly. Bones/joints: Unremarkable. XR/XR chest 1V portable [id number] IMPRESSION: No acute findings.
[2025-10-19] MEDS: HYDROmorphone 0.5 MG/0.5 ML INJ IVP ×5 (13:06→23:59)
[2025-10-19 13:18] LABS: Cholesterol 315 mg/dL (0-200); HDL Cholesterol 20 mg/dL (60-100)
--- NOTE | 2025-10-19 13:18 | PC.NURSE ---
PER DR ELY, START INSULIN DRIP AT 8 UNITS/HR DUE TO FSBS.
[2025-10-19] MEDS: INSULIN REGULAR IN 0.9 % NACL 100 UNIT/100 ML BAG 8 UNIT IV (13:21)
[2025-10-19 13:24] LABS: Alcohol Level < 10 mg/dL (0-10)
[2025-10-19 13:24] LABS: PCP Screen Urine Negative (Negative)
[2025-10-19 13:32] LABS: Triglycerides 1184 mg/dL (0-150)
--- NOTE | 2025-10-19 13:47 | P.HP_ITS ---
Providers/Chief Complaint 2 Admitting Physician: Hill Barrios MD Chief Complaint: abd pain, sob, n/v/d/f History of Present Illness Flaquita Kim is a 24 year old female with a past medical history of gallstone pancreatitis, requiring extensive hospitalization in [place], over 6 months, history of pancreatic cysts requiring drainage, history of necrotizing pancreatitis, history of type 1 diabetes mellitus, who presents to [facility] for complaints of abdominal pain, nausea, vomiting. Patient tells me that she recently moved from [place], she is going through her divorce, she is originally from [place], she has run out of her insulin pump, over the last few days she has been having nausea, vomiting, abdominal pain denies any alcoholism, no drug use, she follows up with a GI physician in [place], is supposed to be on Creon but she ran out of Creon and does not have insurance as she moved back to the [facility] recently, no fevers, chills, no lightheadedness, dizziness, denies being , no drug use, no Ozempic use Review of Systems 2 Const: Denies: fever(s) or chills Card: Denies: chest pain Resp: Denies: dyspnea GI: Reports: abdominal pain, nausea and vomiting : Denies: flank pain Medications/Allergies Home Medications ?Medication ?Instructions ?Recorded ?Confirmed ?Last Taken ?Type Humalog U-200 See Rx Instructions .Route . COMPLEX 10/19/25 10/19/25 10/19/25 History Allergies Allergy/AdvReac Type Severity Reaction Status Date / Time No Known Allergies Allergy Verified 11/06/20 00:12 PFSH Acute 2 PFSH: Medical History DM type 2 (diabetes mellitus, type 2) Surgical History No pertinent past surgical history Vitals/I&O/Wt Last Vital Signs Temp 98.8 F 10/19/25 10:23 Pulse 111 H 10/19/25 13:12 Resp 20 H 10/19/25 12:15 BP 156/90 10/19/25 13:12 Pulse Ox 100 10/19/25 13:12 O2 Del Method Room Air 10/19/25 13:12 10/18/25 10/19/25 10/19/25 22:59 06:59 14:59 Intake Total 1000 / 1000 Balance 1000 / 1000 Weight last 48 hrs Weight 132.449 kg Physical Exam 2 Const: COMMON NORMALS: no acute distress and patient oriented x3 Eye: COMMON NORMALS: Equal, round and reactive pupils present and EOMs intact bilaterally Lymph: LYMPHATIC: no lymphadenopathy noted Resp: COMMON NORMALS: normal respiratory effort, No retractions, No use of accessory muscles and clear to auscultation bilaterally AUSCULTATION: clear to auscultation bilaterally Cardio: COMMON NORMALS: regular rate, regular rhythm, S1 normal heart sound present and S2 normal heart sound present RATE: regular rate RHYTHM: r egular rhythm HEART SOUNDS: S1 normal heart sound present and S2 normal heart sound present GI: OTHER: Abdomen soft, does have abdominal tenderness, diffuse, no guarding, no rebound, no rigidity Extremity: COMMON NORMALS: no pedal edema Neuro: COMMON NORMALS: patient oriented x3, CN's II-XII intact bilaterally and moves all extremities Data 10/19/25 10:27 10/19/25 10:27 Micro: Microbiology 10/19/25 12:46 Blood Culture - Preliminary Blood SPECIMEN COLLECTED 10/19/25 12:44 Blood Culture - Preliminary Blood SPECIMEN COLLECTED A&P Assessment and plan 1. DKA (diabetic ketoacidosis): 2. Hypertriglyceridemia: 3. Pancreatitis: 4. Type 1 diabetes mellitus: Plan: Diabetic ketoacidosis - Plan - DKA protocol - Check blood sugar hourly - BMP every 4 hours - Maintain potassium greater than 4.5 - IV fluids 125 cc an hour - Once blood sugar drops below 200 switch to D5 half-normal saline with 20 KCl - Monitor closely in the ICU - N.p.o. Hypertriglyceridemia induced pancreatitis IMPRESSION: 1. 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 2. Slight ascites localized adjacent to the spleen. - Insulin drip as above - Monitor triglycerides closely every 4-6 hours - Keep insulin drip until triglycerides are below 500 - Gemfibrozil - [place]-3 - Atorvastatin - IV Zosyn -IV fluids -Bowel rest Full code Lovenox for DVT prophylaxis PDMP PDMP Reviewed: Not Reviewed Attestations 2 Medical Necessity Statement*: Patient requires hospitalization, inpatient, greater than 2 midnights, for hypertriglyceridemia induced pancreatitis, diabetic ketoacidosis Diagnoses DKA (diabetic ketoacidosis) E11.10 Hypertriglyceridemia E78.1 Pancreatitis K85.90 Type 1 diabetes mellitus E10.9
--- NOTE | 2025-10-19 13:47 | PC.NURSE ---
Pt states that she wears an insulin pump 200 humalog, pt states yesterday she went to change it and never replaced it because she was too sick. .
--- NOTE | 2025-10-19 14:12 | ECG_ITS ---
[facility]: 2025-10-19 Pat Name: Flaquita Kim Department: Room: [facility] Gender: Female Note Taker: : 2000 Requested By: Audie Kirby Order Number: [id number] Lily MD: Micah Lopez M.D. Measurements Intervals [place] Rate: 118 P: 71 UT: 142 QRS: 77 QRSD: 78 T: 70 QT: 367 QTc: 516 Interpretive Statements SINUS TACHYCARDIA NONSPECIFIC T-WAVE ABNORMALITY ABNORMAL RHYTHM ECG No previous ECG available for comparison Electronically Signed On 10-19-2025 17:49:37 CLINICAL DATA RESEARCH by Micah Lopez M.D. [id number]
[2025-10-19] MEDS: lidocaine 1% 5 ML in potassium chloride premix 100 ML 26.25 ML IV (15:19)
[2025-10-19] MEDS: pantoprazole 40 mg SDV IVP (15:23)
[2025-10-19] MEDS: piperacillin-tazobactam 3.375 GM in sodium chloride 0.9% (plus) 50 ML IV (15:23)
[2025-10-19 15:28] LABS: Procalcitonin 0.06 ng/mL (0-0.5); Thyroid Stimulating Hormone 0.70 uIU/mL (0.27-4.20)
[2025-10-19 15:38] LABS: Blood Urea Nitrogen 5 mg/dL (6-20); Calcium 8.7 mg/dL (8.5-10.5); Chloride 104 mmol/L (98-107); Glucose 251 mg/dL (65-115); Osmolality Calculated 286 mOsm/kg (285-295); Sodium 135 mmol/L (136-145)
[2025-10-19 15:39] LABS: Estmated Average Glucose 318; Hemoglobin A1C 12.7 % (4.0-6.0)
[2025-10-19 15:47] LABS: Anion Gap 29.0 (5-19); Potassium 3.0 mmol/L (3.5-5.1)
[2025-10-19 15:48] LABS: Carbon Dioxide 5 mmol/L (22-29)
--- NOTE | 2025-10-19 16:51 | PC.NURSE ---
Communication with provider: Dr Barrios verbal order to stop insulin drip until 1830 BMP results are available. If potassium is 3.5 or greater may resume insulin drip. Order to administer dextrose containing fluid.
[2025-10-19] MEDS: dextrose 5%-sod chloride 0.45% 1,000 ML 125 ML IV (17:13)
[2025-10-19 18:44] LABS: Blood Urea Nitrogen 6 mg/dL (6-20); Calcium 8.3 mg/dL (8.5-10.5); Chloride 107 mmol/L (98-107); Glucose 192 mg/dL (65-115); Osmolality Calculated 283 mOsm/kg (285-295); Sodium 135 mmol/L (136-145)
[2025-10-19 19:02] LABS: Anion Gap 25.6 (5-19); Potassium 3.6 mmol/L (3.5-5.1)
[2025-10-19 19:06] LABS: Carbon Dioxide 6 mmol/L (22-29)
[2025-10-19] MEDS: sodium chlor 0.9% + KCl 20 mEq 20 MEQ/1,000 ML BAG 150 MEQ IV (20:09)
[2025-10-19 22:37] LABS: Anion Gap 25.8 (5-19); Blood Urea Nitrogen 6 mg/dL (6-20); Calcium 8.7 mg/dL (8.5-10.5); Chloride 108 mmol/L (98-107); Glucose 241 mg/dL (65-115); Osmolality Calculated 290 mOsm/kg (285-295); Potassium 3.8 mmol/L (3.5-5.1); Sodium 137 mmol/L (136-145)
[2025-10-19 22:57] LABS: Carbon Dioxide 7 mmol/L (22-29)
[2025-10-19 23:50] LABS: Base Excess VBG -19.8 mmol/L (-3.0-3.0); Blood Gas Operator Identificat SAM; Blood Gas Sample Type Venous; HCO3 VBG 7.2 mmol/L (24-28); PCO2 VBG 21.0 mmHg (41-51); PO2 VBG 69.2 mmHg (25-40); Venous Blood Gas Hematocrit 46.6 % (37-47)
[2025-10-19 23:54] LABS: pH VBG 7.14 (7.32-7.42)
[2025-10-20] VITALS (29 sets, daily range): BP systolic 118–174; BP diastolic 81–137; PULSE 105–123; RESP 15–28; TEMP 37.1; O2SAT 94–100
[2025-10-20] MEDS: D5-NS 0.45% + KCL 20 mEq 20 MEQ/1,000 ML BAG 150 MEQ IV ×3 (00:06→13:38)
[2025-10-20] MEDS: piperacillin-tazobactam 3.375 GM in sodium chloride 0.9% (plus) 50 ML IV ×4 (00:16→23:59)
[2025-10-20] MEDS: pantoprazole 40 mg SDV IVP ×2 (02:28→14:37)
[2025-10-20 02:38] LABS: Blood Urea Nitrogen 6 mg/dL (6-20); Calcium 8.5 mg/dL (8.5-10.5); Chloride 109 mmol/L (98-107); Glucose 242 mg/dL (65-115); Osmolality Calculated 286 mOsm/kg (285-295); Sodium 135 mmol/L (136-145)
[2025-10-20 02:43] LABS: Anion Gap 23.5 (5-19); Potassium 3.5 mmol/L (3.5-5.1)
[2025-10-20 02:44] LABS: Carbon Dioxide 6 mmol/L (22-29)
[2025-10-20] MEDS: HYDROmorphone 0.5 MG/0.5 ML INJ IVP ×6 (04:03→22:02)
[2025-10-20 05:45] LABS: Hematocrit 43.7 % (36-47); Hemoglobin 14.40 g/dL (11.27-16.99); Mean Corpuscular HGB Conc 33.0 g/dL (30-55); Mean Corpuscular Hemoglobin 27.7 pg (27-33); Mean Corpuscular Volume 84.2 fl (85-98); Nucleated Red Blood Cells % 0 %; Platelet Count 219 10^3/cmm (157-399); Red Blood Count 5.19 10^6/uL (3.85-5.65); White Blood Count 9.32 10^3/uL (3.29-11.43)
[2025-10-20 06:08] LABS: Anion Gap 22.2 (5-19); Blood Urea Nitrogen 6 mg/dL (6-20); Calcium 8.5 mg/dL (8.5-10.5); Chloride 110 mmol/L (98-107); Glucose 271 mg/dL (65-115); Osmolality Calculated 291 mOsm/kg (285-295); Potassium 3.2 mmol/L (3.5-5.1); Sodium 137 mmol/L (136-145)
[2025-10-20 06:09] LABS: Magnesium 2.3 mg/dL (1.7-2.3)
[2025-10-20 06:12] LABS: Carbon Dioxide 8 mmol/L (22-29)
[2025-10-20] MEDS: ondansetron 2 mg/ML SDV 2 mL 4 MG IVP ×2 (07:46→21:53)
[2025-10-20] MEDS: INSULIN REGULAR IN 0.9 % NACL 100 UNIT/100 ML BAG 5.5 UNIT IV (07:48)
--- NOTE | 2025-10-20 09:07 | USR_ITS ---
PROCEDURE INFORMATION: Exam: US Abdomen; Limited Exam date and time: 10/20/2025 10:19 AM Age: 24 years old Clinical indication: Bloating; Additional info: Liver, pancreas TECHNIQUE: Imaging protocol: Real time ultrasound of the abdomen with image documentation. Limited exam focused on the region of clinical interest. COMPARISON: CT abdomen pelvis w con* [id number] 10/19/2025 12:01 PM FINDINGS: Limitations: Examination limited by body habitus and bowel-gas. Liver: Liver echotexture appears within normal limits. No focal hepatic lesions identified sonographically. Liver length of 19.5 cm. Gallbladder: Prior cholecystectomy. No biliary ductal dilatation with the common bile duct measuring about 4 mm in diameter. Pancreas: The pancreas is not well visualized due to bowel gas. Anechoic area measuring up to 6.3 cm seen in the pancreatic region, likely correlating with the pseudocyst seen on recent prior CT. Aorta: Visualized portions of the proximal abdominal aorta are nonaneurysmal. Inferior vena cava: Visualized IVC appears unremarkable. Portal venous: The portal vein is patent with hepatopetal flow. US/US abdomen limited [id number] IMPRESSION: 1. The pancreas is not well visualized due to bowel gas. Anechoic area measuring up to 6.3 cm seen in the pancreatic region, likely correlating with the pseudocyst seen on recent prior CT. 2. Nonspecific hepatomegaly. 3. Cholecystectomy without biliary ductal dilatation.
[2025-10-20] MEDS: metoclopramide 5 mg/mL SDV 2 mL IVP ×2 (09:27→17:00)
[2025-10-20] MEDS: potassium phosphate (mEq K) 40 MEQ in sodium chloride 0.9% (100 ml) 100 ML 27.25 MEQ IV (09:31)
[2025-10-20 10:30] LABS: Anion Gap 17.1 (5-19); Blood Urea Nitrogen 5 mg/dL (6-20); Calcium 8.5 mg/dL (8.5-10.5); Carbon Dioxide 13 mmol/L (22-29); Chloride 110 mmol/L (98-107); Glucose 256 mg/dL (65-115); Lactic Sepsis W/Reflex 1.1 mmol/L (0.5-2.2); Osmolality Calculated 290 mOsm/kg (285-295); Potassium 3.1 mmol/L (3.5-5.1); Sodium 137 mmol/L (136-145)
[2025-10-20 10:38] LABS: Lipase 575 U/L (13-60)
[2025-10-20 13:56] LABS: Anion Gap 17.3 (5-19); Blood Urea Nitrogen 5 mg/dL (6-20); Calcium 8.5 mg/dL (8.5-10.5); Carbon Dioxide 16 mmol/L (22-29); Chloride 109 mmol/L (98-107); Glucose 244 mg/dL (65-115); Osmolality Calculated 293 mOsm/kg (285-295); Potassium 3.3 mmol/L (3.5-5.1); Sodium 139 mmol/L (136-145); Triglycerides 533 mg/dL (0-150)
[2025-10-20] MEDS: lidocaine 1% 5 ML in potassium chloride premix 100 ML 26.25 ML IV (14:31)
--- NOTE | 2025-10-20 14:31 | P.PN_ITS ---
Subjective 2 Subjective: Patient was seen this morning, currently alert oriented x 3, follow commands, does report feeling nauseous, has abdominal pain although improving, no fevers, no chills Vitals/I&O/Wt Last Vital Signs Temp 98.8 F 10/20/25 04:00 Pulse 116 H 10/20/25 12:00 Resp 22 H 10/20/25 12:00 BP 162/103 10/20/25 12:00 Pulse Ox 97 10/20/25 12:00 O2 Del Method Room Air 10/19/25 17:45 10/19/25 10/20/25 10/20/25 22:59 06:59 14:59 Intake Total 130.341 / 2138.741 4188.083 / 6326.824 964.867 / 964.867 Output Total 200 / 200 Balance -69.659 / 1550.869 1517.083 / 6126.824 964.867 / 964.867 Weight last 48 hrs Weight 132 kg Weight 132.449 kg Weight 132.449 kg Physical Exam 2 Const: COMMON NORMALS: no acute distress and patient oriented x3 Resp: COMMON NORMALS: normal respiratory effort, No retractions, No use of accessory muscles and clear to auscultation bilaterally AUSCULTATION: clear to auscultation bilaterally Cardio: COMMON NORMALS: regular rate, regular rhythm, S1 normal heart sound present and S2 normal heart sound present RATE: regular rate RHYTHM: r egular rhythm HEART SOUNDS: S1 normal heart sound present and S2 normal heart sound present GI: OTHER: Abdomen is soft, distended, good bowel sounds, no guarding, no rebound, no rigidity Extremity: COMMON NORMALS: no pedal edema Neuro: COMMON NORMALS: patient oriented x3 Psych: COMMON NORMALS: mental status grossly normal Data 10/20/25 04:59 10/20/25 13:31 Micro: Microbiology 10/19/25 12:46 Blood Culture - Preliminary Blood NEGATIVE TO DATE 10/19/25 12:44 Blood Culture - Preliminary Blood NEGATIVE TO DATE A&P Assessment and plan 1. DKA (diabetic ketoacidosis): 2. Hypertriglyceridemia: 3. Pancreatitis: 4. Type 1 diabetes mellitus: Plan: Diabetic ketoacidosis -Bicarb 5, anion gap 17, continue insulin drip - Plan - DKA protocol - Check blood sugar hourly - BMP every 4 hours - Maintain potassium greater than 4.5 - 5 half-normal saline with 20 KCl at 150 cc an hour - Once blood sugar drops below 200 switch to D5 half-normal saline with 20 KCl - Monitor closely in the ICU - N.p.o. Hypertriglyceridemia induced pancreatitis IMPRESSION: 1. 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 2. Slight ascites localized adjacent to the spleen. - Insulin drip as above - Monitor triglycerides closely every 4-6 hours - Keep insulin drip until triglycerides are below 500 - Gemfibrozil - [place]-3 - Atorvastatin - IV Zosyn -IV fluids -Bowel rest Full code Lovenox for DVT prophylaxis PDMP PDMP Reviewed: Not Reviewed Attestations 2 Medical Necessity Statement*: Patient requires hospitalization for diabetic ketoacidosis, hypertriglyceridemia induced pancreatitis Diagnoses DKA (diabetic ketoacidosis) E11.10 Hypertriglyceridemia E78.1 Pancreatitis K85.90 Type 1 diabetes mellitus E10.9
[2025-10-20 18:20] LABS: Anion Gap 20.2 (5-19); Blood Urea Nitrogen 4 mg/dL (6-20); Calcium 8.6 mg/dL (8.5-10.5); Carbon Dioxide 13 mmol/L (22-29); Chloride 110 mmol/L (98-107); Glucose 243 mg/dL (65-115); Osmolality Calculated 295 mOsm/kg (285-295); Potassium 3.2 mmol/L (3.5-5.1); Sodium 140 mmol/L (136-145); Triglycerides 484 mg/dL (0-150)
[2025-10-20] MEDS: lidocaine 1% 5 ML in potassium chloride premix 100 ML 52.5 ML IV ×2 (19:22→21:27)
[2025-10-20] MEDS: D5-NS 0.45% + KCL 20 mEq 20 MEQ/1,000 ML BAG 125 MEQ IV (20:31)
[2025-10-20 22:28] LABS: Anion Gap 17.5 (5-19); Blood Urea Nitrogen 4 mg/dL (6-20); Calcium 9.1 mg/dL (8.5-10.5); Carbon Dioxide 15 mmol/L (22-29); Chloride 109 mmol/L (98-107); Glucose 243 mg/dL (65-115); Osmolality Calculated 291 mOsm/kg (285-295); Potassium 3.5 mmol/L (3.5-5.1); Sodium 138 mmol/L (136-145); Triglycerides 499 mg/dL (0-150)
[2025-10-20] MEDS: INSULIN REGULAR IN 0.9 % NACL 100 UNIT/100 ML BAG 6.5 UNIT IV (23:59)
[2025-10-21] VITALS (20 sets, daily range): BP systolic 112–158; BP diastolic 72–113; PULSE 97–140; RESP 13–24; TEMP 36.5–37.3; O2SAT 92–99
[2025-10-21 01:26] LABS: Blood Urea Nitrogen 4 mg/dL (6-20); Calcium 8.9 mg/dL (8.5-10.5); Carbon Dioxide 13 mmol/L (22-29); Chloride 109 mmol/L (98-107); Glucose 235 mg/dL (65-115); Osmolality Calculated 290 mOsm/kg (285-295); Sodium 138 mmol/L (136-145); Triglycerides 442 mg/dL (0-150)
[2025-10-21 01:28] LABS: Anion Gap 19.6 (5-19); Potassium 3.6 mmol/L (3.5-5.1)
[2025-10-21] MEDS: metoclopramide 5 mg/mL SDV 2 mL IVP ×3 (02:11→17:30)
[2025-10-21] MEDS: pantoprazole 40 mg SDV IVP ×2 (02:11→14:48)
[2025-10-21] MEDS: HYDROmorphone 0.5 MG/0.5 ML INJ IVP ×6 (02:12→23:06)
[2025-10-21] MEDS: D5-NS 0.45% + KCL 20 mEq 20 MEQ/1,000 ML BAG 125 MEQ IV (05:18)
[2025-10-21 05:44] LABS: Hematocrit 41.8 % (36-47); Hemoglobin 13.40 g/dL (11.27-16.99); Mean Corpuscular HGB Conc 32.1 g/dL (30-55); Mean Corpuscular Hemoglobin 26.9 pg (27-33); Mean Corpuscular Volume 83.8 fl (85-98); Nucleated Red Blood Cells % 0 %; Platelet Count 159 10^3/cmm (157-399); Red Blood Count 4.99 10^6/uL (3.85-5.65); White Blood Count 7.05 10^3/uL (3.29-11.43)
[2025-10-21 06:08] LABS: Anion Gap 16.3 (5-19); Blood Urea Nitrogen 3 mg/dL (6-20); Calcium 8.8 mg/dL (8.5-10.5); Carbon Dioxide 15 mmol/L (22-29); Chloride 111 mmol/L (98-107); Glucose 231 mg/dL (65-115); Osmolality Calculated 292 mOsm/kg (285-295); Potassium 3.3 mmol/L (3.5-5.1); Sodium 139 mmol/L (136-145); Triglycerides 367 mg/dL (0-150)
[2025-10-21 06:15] LABS: Magnesium 2.0 mg/dL (1.7-2.3)
[2025-10-21] MEDS: ondansetron 2 mg/ML SDV 2 mL 4 MG IVP ×3 (06:22→23:06)
[2025-10-21] MEDS: piperacillin-tazobactam 3.375 GM in sodium chloride 0.9% (plus) 50 ML IV ×2 (06:22→14:48)
[2025-10-21] MEDS: potassium phosphate (mEq K) 40 MEQ in sodium chloride 0.9% (100 ml) 100 ML 27.25 MEQ IV (07:05)
--- NOTE | 2025-10-21 07:50 | PC.NURSE ---
PRN Kphos started per protocol, Dr. Barrios advised canceling one time order
--- NOTE | 2025-10-21 09:12 | XRR_ITS ---
PROCEDURE INFORMATION: Exam: XR Abdomen Exam date and time: 10/21/2025 11:14 AM Age: 24 years old Clinical indication: Abdominal pain; Generalized; Abd pain; Additional info: Bloating/pain TECHNIQUE: Imaging protocol: Radiologic exam of the abdomen. Views: Frontal supine view of the abdomen. 1 View. COMPARISON: CT abdomen pelvis w con* [id number] 10/19/2025 12:01 PM FINDINGS: Gastrointestinal tract: Bowel-gas pattern is nonspecific. No overly distended small bowel loop. Bones/joints: Unremarkable. XR/XR KUB portable [id number] IMPRESSION: Bowel-gas pattern is nonspecific.
[2025-10-21 10:02] LABS: Anion Gap 15.5 (5-19); Blood Urea Nitrogen 3 mg/dL (6-20); Calcium 8.7 mg/dL (8.5-10.5); Carbon Dioxide 17 mmol/L (22-29); Chloride 112 mmol/L (98-107); Glucose 229 mg/dL (65-115); Osmolality Calculated 296 mOsm/kg (285-295); Potassium 3.5 mmol/L (3.5-5.1); Sodium 141 mmol/L (136-145); Triglycerides 316 mg/dL (0-150)
[2025-10-21] MEDS: insulin glargine 100 units/1 mL 10 UNIT SUBCUT (12:07)
[2025-10-21 13:31] LABS: Blood Urea Nitrogen 3 mg/dL (6-20); Calcium 8.7 mg/dL (8.5-10.5); Carbon Dioxide 17 mmol/L (22-29); Chloride 109 mmol/L (98-107); Glucose 202 mg/dL (65-115); Osmolality Calculated 288 mOsm/kg (285-295); Sodium 138 mmol/L (136-145); Triglycerides 293 mg/dL (0-150)
[2025-10-21 13:37] LABS: Anion Gap 15.3 (5-19); Potassium 3.3 mmol/L (3.5-5.1)
--- NOTE | 2025-10-21 16:54 | P.PN_ITS ---
Subjective 2 Subjective: - Patient was seen this morning - Currently alert oriented x 3, follows command - No abdominal pain this morning nausea is more under control, passing gas, no bowel movement - No lightheadedness, dizziness - Remains on insulin drip, discussed tra nsitioning to subcu insulin Lantus based upon her repeat BMP - Repeat BMP 15.3, will transition to La ntus, overlap with insulin drip for 1 hour and transition to subcu insulin Vitals/I&O/Wt Last Vital Signs Temp 98.8 F 10/20/25 04:00 Pulse 106 H 10/21/25 14:00 Resp 24 H 10/21/25 13:00 BP 144/86 10/21/25 13:00 Pulse Ox 96 10/21/25 13:00 O2 Del Method Room Air 10/19/25 17:45 10/21/25 10/21/25 10/21/25 06:59 14:59 22:59 Intake Total 1066.341 / 3548.5989 352.108 / 352.108 Balance 1066.341 / 3548.5989 352.108 / 352.108 Weight last 48 hrs Weight 115.5 kg Weight 132 kg Physical Exam 2 Const: COMMON NORMALS: no acute distress and patient oriented x3 Resp: COMMON NORMALS: normal respiratory effort, No retractions, No use of accessory muscles and clear to auscultation bilaterally AUSCULTATION: clear to auscultation bilaterally Cardio: COMMON NORMALS: regular rate, regular rhythm, S1 normal heart sound present and S2 normal heart sound present RATE: regular rate RHYTHM: r egular rhythm HEART SOUNDS: S1 normal heart sound present and S2 normal heart sound present GI: COMMON NORMALS: Normal to inspection, nondistended, normoactive bowel sounds present and non-tender Extremity: COMMON NORMALS: no pedal edema Neuro: COMMON NORMALS: patient oriented x3 Psych: COMMON NORMALS: mental status grossly normal Data 10/21/25 04:59 10/21/25 12:49 Micro: Microbiology 10/19/25 12:46 Blood Culture - Preliminary Blood NEGATIVE TO DATE 10/19/25 12:44 Blood Culture - Preliminary Blood NEGATIVE TO DATE A&P Assessment and plan 1. DKA (diabetic ketoacidosis): 2. Hypertriglyceridemia: 3. Pancreatitis: 4. Type 1 diabetes mellitus: Plan: Diabetic ketoacidosis - Anion gap 15.3, transition off insulin drip - Plan - Lantus 10 units subcu daily - High-dose sliding scale - Clear liquid diet -Recheck BMP, phosphorus Hypertriglyceridemia induced pancreatitis IMPRESSION: 1. 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 2. Slight ascites localized adjacent to the spleen. -Triglycerides under 500 - Insulin drip as above, will transition off - Gemfibrozil - [place]-3 - Atorvastatin - De-escalated off IV Zosyn to p.o. Augmentin -IV fluids -Bowel rest, transition to clear liquids Full code Lovenox for DVT prophylaxis PDMP PDMP Reviewed: Not Reviewed Attestations 2 Medical Necessity Statement*: Patient requires hospitalization for diabetic ketoacidosis, hypertriglyceridemia induced pancreatitis Diagnoses DKA (diabetic ketoacidosis) E11.10 Hypertriglyceridemia E78.1 Pancreatitis K85.90 Type 1 diabetes mellitus E10.9
[2025-10-21 17:23] LABS: Anion Gap 19.3 (5-19); Blood Urea Nitrogen 3 mg/dL (6-20); Calcium 8.5 mg/dL (8.5-10.5); Carbon Dioxide 16 mmol/L (22-29); Chloride 106 mmol/L (98-107); Glucose 259 mg/dL (65-115); Osmolality Calculated 291 mOsm/kg (285-295); Potassium 3.3 mmol/L (3.5-5.1); Sodium 138 mmol/L (136-145); Triglycerides 245 mg/dL (0-150)
[2025-10-21 17:51] LABS: Magnesium 1.8 mg/dL (1.7-2.3)
[2025-10-22] VITALS (7 sets, daily range): BP systolic 110–135; BP diastolic 64–80; PULSE 99–110; RESP 16–20; TEMP 36.3–36.6; O2SAT 93–99
[2025-10-22] MEDS: HYDROmorphone 0.5 MG/0.5 ML INJ IVP ×3 (03:04→12:23)
[2025-10-22] MEDS: pantoprazole 40 mg SDV IVP (03:04)
[2025-10-22 04:40] LABS: Hematocrit 35.6 % (36-47); Hemoglobin 12.10 g/dL (11.27-16.99); Mean Corpuscular HGB Conc 34.0 g/dL (30-55); Mean Corpuscular Hemoglobin 28.1 pg (27-33); Mean Corpuscular Volume 82.6 fl (85-98); Nucleated Red Blood Cells % 0 %; Platelet Count 157 10^3/cmm (157-399); Red Blood Count 4.31 10^6/uL (3.85-5.65); White Blood Count 5.90 10^3/uL (3.29-11.43)
[2025-10-22 04:59] LABS: Magnesium 1.7 mg/dL (1.7-2.3)
[2025-10-22 05:02] LABS: Alanine Aminotransferase 13 U/L (0-33); Albumin Level 2.9 g/dL (3.5-5.2); Alkaline Phosphatase 109 U/L (35-105); Anion Gap 17.4 (5-19); Aspartate Amino Transferase 12 U/L (0-32); Blood Urea Nitrogen 3 mg/dL (6-20); Calcium 8.4 mg/dL (8.5-10.5); Carbon Dioxide 18 mmol/L (22-29); Chloride 107 mmol/L (98-107); Globulin 2.6 g/dL (1.3-4.6); Glucose 247 mg/dL (65-115); Osmolality Calculated 293 mOsm/kg (285-295); Potassium 3.4 mmol/L (3.5-5.1); Sodium 139 mmol/L (136-145); Total Protein 5.5 g/dL (6.6-8.7)
[2025-10-22] MEDS: ondansetron 2 mg/ML SDV 2 mL 4 MG IVP (07:30)
[2025-10-22] MEDS: insulin glargine 100 units/1 mL 10 UNIT SUBCUT (08:26)
--- NOTE | 2025-10-22 11:17 | P.DS_ITS ---
Discharge Providers Date of Admission: 10/19/25 13:39 Date of Discharge: October 22, 2025 Attending Provider at Admission: Hill Barrios MD Attending Provider at Discharge: Hill Barrios MD Diagnoses at Discharge Discharge Diagnosis 1. DKA (diabetic ketoacidosis): 2. Hypertriglyceridemia: 3. Pancreatitis: 4. Type 1 diabetes mellitus: Reason for Visit Reason for Visit: abd pain, sob, n/v/d/f Hospital Course Hospital Course Flaquita Kim is a 24 year old female with a past medical history of gallstone pancreatitis, requiring extensive hospitalization in [place], over 6 months, history of pancreatic cysts requiring drainage, history of necrotizing pancreatitis, history of type 1 diabetes mellitus, who presents to [facility] for complaints of abdominal pain, nausea, vomiting. Patient tells me that she recently moved from [place], she is going through her divorce, she is originally from [place], she has run out of her insulin pump, over the last few days she has been having nausea, vomiting, abdominal pain denies any alcoholism, no drug use, she follows up with a GI physician in [place], is supposed to be on Creon but she ran out of Creon and does not have insurance as she moved back to the [facility] recently, no fevers, chills, no lightheadedness, dizziness, denies being , no drug use, no Ozempic use Patient was admitted to [facility] for diabetic ketoacidosis, managed in the ICU, on insulin drip, overall clinically improved, anion gap closed, transitioned to subcut insulin and Lantus, overall clinically improved. Patient will be discharged with her home insulin pump to be started this afternoon at 4 to 5 PM when she gets home, she reports that she has all the supplies and insulin she needs, monitor for hypoglycemia, monitor blood sugars closely, follow-up with primary care provider, follow-up with endocrinology Patient was admitted to [facility] for hypertriglyceridemia induced pancreatitis IMPRESSION: 1. 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 2. Slight ascites localized adjacent to the spleen. - Received insulin drip, IV fluids, IV pain control - Received gemfibrozil, omega-3 - IV fluids - Overall clinically proved, abdominal pain resolved, - She was having bowel movements, passing gas, no nausea, no vomiting - Will be discharged on gemfibrozil, omega-3, advised to hydrate well - Discharged on a GI soft diet, low-fat - Follow-up with primary care, follow-up with endocrinology For pancreatic tail pseudocyst, follow-up with Lora FREEMAN For history of sinus tachycardia, patient was supposed to follow-up with cardiology when she was in [place], but she recently moved to [place], di scharged on metoprolol, follow-up with cardiology as outpatient -Please monitor your blood sugars closely -Monitor your blood sugars 4 times daily as after meals -Please record your blood sugars, and a blood sugar log -Continue your home insulin pump start at roughly 4 to 5 PM -If your blood sugar is greater than 500 go to the emergency room -If your blood sugar is less than 60 or at anytime you feel lightheaded or dizzy or diaphoretic or have chest palpitations check your blood sugar, and eat a hard candy or drink orange juice and go immediately to the emergency room -Remember hypoglycemia kills, so if his blood sugar is less than 60 we have to increase it by taking in a sugary meal such as a hard candy or orange juice and go to the emergency room -If you have any questions please call us where here to help - Please follow-up with primary care provider with your blood sugar logs - Please follow-up with endocrinology - Please continue medications for your hypertriglyceridemia - Please hydrate well at least 2 L of fluid a day - Slowly advance diet, avoid fatty meals, avoid highly glycemic meals - Have primary care provider recheck triglycerides in 1 week - Follow-up with GI in [place] for pancreatic pseudocyst Physical Exam Const: COMMON NORMALS: no acute distress and patient oriented x3 Resp: COMMON NORMALS: normal respiratory effort, No retractions, No use of accessory muscles and clear to auscultation bilaterally AUSCULTATION: clear to auscultation bilaterally Cardio: COMMON NORMALS: regular rate, regular rhythm, S1 normal heart sound present and S2 normal heart sound present RATE: regular rate RHYTHM: regular rhythm HEART SOUNDS: S1 normal heart sound present and S2 normal heart sound present GI: COMMON NORMALS: Normal to inspection, nondistended, normoactive bowel sounds present and non-tender Extremity: COMMON NORMALS: no calf tenderness and no pedal edema Neuro: COMMON NORMALS: patient oriented x3 Psych: COMMON NORMALS: mental status grossly normal Discharge Data Studies Completed and Pending Completed Studies During Hospitalization Category Date Time Status CT abdomen pelvis w con* [id number] Urgent Cat Scan 10/19/25 10:21 Completed XR KUB portable [id number] Routine Exams 10/21/25 09:12 Completed XR chest 1V portable [id number] Stat Exams 10/19/25 12:46 Completed US abdomen limited [id number] Routine Ultrasound 10/20/25 09:07 Completed Pending at discharge Category Date Time Status Blood Culture Stat Lab 10/19/25 12:46 Results Comprehensive Metabolic Panel AM LABS Lab 10/23/25 04:00 Ordered Comprehensive Metabolic Panel AM LABS Lab 10/24/25 04:00 Ordered VBG [Venous Blood Gas] Routine Lab 10/19/25 23:40 Results Radiology Impressions Abdomen/Pelvis CT 10/19/25 10:21 PROCEDURE INFORMATION: Exam: CT Abdomen And Pelvis With Contrast Exam date and time: 10/19/2025 12:01 PM Age: 24 years old Clinical indication: Other: Uppper abd pain; Prior surgery; Surgery date: 6+ months; Surgery type: Gallbladder; Additional info: Severe upper abd pain, HX of pancreatitis TECHNIQUE: Imaging protocol: Computed tomography of the abdomen and pelvis with contrast. Radiation optimization: All CT scans at this facility use at least one of these dose optimization techniques: automated exposure control; mA and/or kV adjustment per patient size (includes targeted exams where dose is matched to clinical indication); or iterative reconstruction. Contrast material: [id number]; Contrast volume: 100 ml; Contrast route: INTRAVENOUS (IV); COMPARISON: CT angio chest PE protcl [id number] 11/06/2020 1:37 AM RADIATION DOSE METRICS: Total DLP (mGy-cm): 1178.3 FINDINGS: Diaphragm: There is a small amount of fluid which is probably free fluid between the left hemidiaphragm and splenic surface. Liver: Normal. No mass. Gallbladder and biliary ducts: Cholecystectomy. Pancreas: The pancreas is mildly edematous. Adjacent and possibly arising from the tail of the pancreas and situated between the gastric wall and spleen is a 4 x 2.7 cm slightly thick-walled cystic structure. This extends to the splenic hilum. There are rounded areas of diminished attenuation within the spleen which probably represent extension of a pancreatic pseudocyst. A small amount of subcapsular fluid is present as well adjacent to the upper spleen. Spleen: See pancreas above. Adrenal glands: Normal. No mass. Kidneys and ureters: Normal. No hydronephrosis. Stomach and bowel: See Pancreas finding. Appendix: No evidence of appendicitis. Intraperitoneal space: See Spleen finding. Vasculature: Unremarkable. No abdominal aortic aneurysm. Lymph nodes: Unremarkable. No enlarged lymph nodes. Urinary bladder: Unremarkable as visualized. Reproductive: Unremarkable as visualized. Bones/joints: Unremarkable. No acute fracture. Soft tissues: Unremarkable. Incompletely imaged mild stranding of the fat in the mons pubis on the left side, incompletely imaged cellulitis or other infection unlikely. IMPRESSION: 1. 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 2. Slight ascites localized adjacent to the spleen. Chest X-Ray 10/19/25 12:46 IMPRESSION: No acute findings. Abdomen Ultrasound 10/20/25 09:07 IMPRESSION: 1. The pancreas is not well visualized due to bowel gas. Anechoic area measuring up to 6.3 cm seen in the pancreatic region, likely correlating with the pseudocyst seen on recent prior CT. 2. Nonspecific hepatomegaly. 3. Cholecystectomy without biliary ductal dilatation. KUB X-Ray 10/21/25 09:12 IMPRESSION: Bowel-gas pattern is nonspecific. Laboratory Results WBC 5.90 10^3/uL (3.29-11.43) 10/22/25 04:13 RBC 4.31 10^6/uL (3.85-5.65) 10/22/25 04:13 Hgb 12.10 g/dL (11.27-16.99) 10/22/25 04:13 Hct 35.6 % (36-47) L 10/22/25 04:13 MCV 82.6 fl (85-98) L 10/22/25 04:13 MCH 28.1 pg (27-33) 10/22/25 04:13 MCHC 34.0 g/dL (30-55) D 10/22/25 04:13 RDW 16.3 % (12.1-15.1) H 10/22/25 04:13 Plt Count 157 10^3/cmm (157-399) 10/22/25 04:13 MPV 9.7 fL (7.4-10.4) 10/22/25 04:13 Neut % (Auto) 64.5 % 10/22/25 04:13 Lymph % (Auto) 23.7 % 10/22/25 04:13 [place] % (Auto) 9.0 % 10/22/25 04:13 Eos % (Auto) 0.8 % 10/22/25 04:13 Baso % (Auto) 0.5 % 10/22/25 04:13 Neut # (Auto) 3.80 10^3/uL (1.8-7.7) 10/22/25 04:13 Lymph # (Auto) 1.4 10^3/uL (0.8-4.8) 10/22/25 04:13 [place] # (Auto) 0.5 10^3/uL (0.2-0.9) 10/22/25 04:13 Eos # (Auto) 0.1 10^3/uL (0.0-0.8) 10/22/25 04:13 Baso # (Auto) 0.0 10^3/uL (0.0-0.1) 10/22/25 04:13 Nucleated RBC % (auto) 0 % 10/22/25 04:13 Nucleated RBCs # 0.0 /100WBC 10/22/25 04:13 Specimen Type Venous 10/19/25 23:40 Sample Site Brachial, left 10/19/25 11:20 ABG pH 7.07 (7.35-7.45) L* 10/19/25 11:20 ABG pCO2 18.0 mmHg (35-45) L* 10/19/25 11:20 ABG pO2 122.0 mmHg (80.0-100.0) H 10/19/25 11:20 ABG PO2/FiO2 Ratio 580 10/19/25 11:20 ABG HCO3 5.2 mmol/L (22-26) L 10/19/25 11:20 ABG O2 Saturation 98.7 10/19/25 11:20 ABG Base Excess -23.1 mmol/L (-2.0-2.0) L 10/19/25 11:20 Robert Test N/a 10/19/25 23:40 VBG pH 7.14 (7.32-7.42) L* 10/19/25 23:40 VBG pCO2 21.0 mmHg (41-51) L 10/19/25 23:40 VBG pO2 69.2 mmHg (25-40) H 10/19/25 23:40 VBG HCO3 7.2 mmol/L (24-28) L 10/19/25 23:40 VBG Base Excess -19.8 mmol/L (-3.0-3.0) L 10/19/25 23:40 VBG Hematocrit 46.6 % (37-47) 10/19/25 23:40 A-a O2 Gradient 0.2 mmHg (5-10) L 10/19/25 11:20 Hematocrit 45.7 % (37-47) 10/19/25 11:20 Hgb O2 Saturation 97.2 % (95-100) 10/19/25 11:20 Carboxyhemoglobin 1.2 %THgb (0.4-20.1) 10/19/25 11:20 Methemoglobin 0.3 % (0.4-1.5) L 10/19/25 11:20 Total Hemoglobin 14.9 g/dL (12-16) 10/19/25 11:20 Sodium 139.0 mmol/L (131-143) 10/19/25 11:20 Potassium 3.2 mmol/L (3.5-5.0) L 10/19/25 11:20 Glucose 308.0 mg/dL (70-115) H 10/19/25 11:20 Ionized Calcium 1.2 mmol/L (1.1-1.4) 10/19/25 11:20 O2 Delivery Device None 10/19/25 23:40 FiO2 21.0 % 10/19/25 23:40 Marketing Consultant ID Marcelino 10/19/25 23:40 Sodium 139 mmol/L (136-145) 10/22/25 04:13 Potassium 3.4 mmol/L (3.5-5.1) L 10/22/25 04:13 Chloride 107 mmol/L (98-107) 10/22/25 04:13 Carbon Dioxide 18 mmol/L (22-29) L 10/22/25 04:13 Anion Gap 17.4 (5-19) 10/22/25 04:13 BUN 3 mg/dL (6-20) L 10/22/25 04:13 Creatinine 0.5 mg/dL (0.5-0.9) 10/22/25 04:13 GFR Calculation 152.9 mL/min (90-130) H 10/22/25 04:13 Glucose 247 mg/dL (65-115) H 10/22/25 04:13 POC Glucose 283 mg/dL (70-110) H 10/22/25 11:01 Estimat Average Glucose 318 10/19/25 15:07 Hemoglobin A1c 12.7 % (4.0-6.0) H 10/19/25 15:07 Calculated Osmolality 293 mOsm/kg (285-295) 10/22/25 04:13 Lactic Acid 1.1 mmol/L (0.5-2.2) 10/20/25 09:48 Calcium 8.4 mg/dL (8.5-10.5) L 10/22/25 04:13 Phosphorus 2.7 mg/dL (2.5-4.5) 10/22/25 04:13 Magnesium 1.7 mg/dL (1.7-2.3) 10/22/25 04:13 Total Bilirubin 0.3 mg/dL (0.15-1.2) 10/22/25 04:13 AST 12 U/L (0-32) 10/22/25 04:13 ALT 13 U/L (0-33) 10/22/25 04:13 Alkaline Phosphatase 109 U/L (35-105) H 10/22/25 04:13 C-Reactive Protein 149.1 mg/L (0.0-4.9) H 10/20/25 09:48 Total Protein 5.5 g/dL (6.6-8.7) L 10/22/25 04:13 Albumin 2.9 g/dL (3.5-5.2) L 10/22/25 04:13 Globulin 2.6 g/dL (1.3-4.6) 10/22/25 04:13 Triglycerides 245 mg/dL (0-150) H 10/21/25 16:21 Cholesterol 315 mg/dL (0-200) H 10/19/25 10:27 LDL Cholesterol Direct 100 mg/dL (0-100) 10/21/25 01:00 LDL Cholesterol, Calc Not Reportable 10/19/25 10: HDL Cholesterol 20 mg/dL (60-100) L 10/19/25 10:27 LDL/HDL Ratio Not Reportable 10/19/25 10:27 Cholesterol/HDL Ratio 15.75 mg/dL (0.0-4.40) H 10/19/25 10:27 Lipase 575 U/L (13-60) H 10/20/25 09:48 Procalcitonin 0.06 ng/mL (0-0.5) 10/19/25 14:37 TSH 0.70 uIU/mL (0.27-4.20) 10/19/25 14:37 HCG, Qual Negative (Negative) 10/19/25 10:27 Urine Color Yellow (Yellow) 10/19/25 11:42 Urine Appearance Clear (CLEAR) 10/19/25 11:42 Urine pH 5.5 (5-7) 10/19/25 11:42 Ur Specific [place] 1.026 (1.005-1.030) 10/19/25 11:42 Urine Protein 2+ (Negative) A 10/19/25 11:42 Urine Glucose (UA) 1+ (Normal) H 10/19/25 11:42 Urine Ketones 4+ (Negative) 10/19/25 11:42 Urine Blood 1+ (Negative) A 10/19/25 11:42 Urine Nitrate Negative (Negative) 10/19/25 11:42 Urine Bilirubin Negative (Negative) 10/19/25 11:42 Urine Urobilinogen 1.0 mg/dL (Negative) 10/19/25 11:42 Ur Leukocyte Esterase Negative (Negative) 10/19/25 11:42 Urine RBC 3-5 /hpf (0-2) 10/19/25 11:42 Urine WBC 11-20 /hpf (0-5) H 10/19/25 11:42 Ur Squamous Epith Cells 0-5 /hpf (0-5) 10/19/25 11:42 Amorphous Sediment Not Reportable 10/19/25 11:42 Urine Bacteria Trace /hpf (NONE) 10/19/25 11:42 Hyaline Casts 13.22 /lpf 10/19/25 11:42 Fine Granular Casts 0-4 /lpf H 10/19/25 11:42 Urine Opiates Screen Negative ng/mL (Negative) 10/19/25 11:42 Ur Barbiturates Screen Negative ng/mL (Negative) 10/19/25 11:42 Ur Phencyclidine Scrn Negative ng/mL (Negative) 10/19/25 11:42 Ur Amphetamines Screen Negative ng/mL (Negative) 10/19/25 11:42 U Benzodiazepines Scrn Negative ng/mL (Negative) 10/19/25 11:42 Urine Cocaine Screen Negative ng/mL (Negative) 10/19/25 11:42 U Marijuana (THC) Screen Negative ng/mL (Negative) 10/19/25 11:42 Ethyl Alcohol < 10 mg/dL (0-10) 10/19/25 10:27 Serum Ketones Positive (Negative) H 10/19/25 11:32 Vitals Last Vital Signs Temp 97.7 F 10/22/25 11:15 Pulse 105 H 10/22/25 11:15 Resp 17 10/22/25 11:15 BP 135/79 10/22/25 11:15 Pulse Ox 98 10/22/25 11:15 O2 Del Method Room Air 10/22/25 11:15 Discharge Plan Discharge Patient Disposition: Home Condition: Stable Prescriptions: New omega-3 acid ethyl esters 1 gram Capsule 1 g PO BID 30 Days Qty: 60 0RF amoxicillin-pot clavulanate 875-125 mg Tablet 1 tab PO BID 5 Days Qty: 10 0RF Creon 3,000-9,500- 15,000 unit capsule,delayed release(DR/EC) 10 cap PO TID 30 Days Qty: 900 0RF Rx Instructions: with meals do not exceed 10,000 unit/kg/day lipase per 24 hrs glucagon HCl [Glucagon (HCl) Emergency Kit] 1 mg recon soln 1 mg IM Q20M PRN (Reason: hypoglycemia) Qty: 1 0RF Rx Instructions: until target blood sugar attained gemfibrozil 600 mg Tablet 600 mg PO Q12H 30 Days Qty: 60 0RF metoprolol tartrate 25 mg tablet 12.5 mg PO BID 30 Days Qty: 30 0RF Continued Humalog U-200 See Rx Instructions .ROUTE .COMPLEX Rx Instructions: Inject up to 260 units daily via insulin pump. Referrals: Casper Benitez MD [Referring, Internal Medicine] - 1 month Referral Note: pancreatitis, hypertriglycerides, pancreatic pseudocyst Brandon Jeffery MD [Physician, Cardiology] - 1-3 days Referral Note: tachycardia Katie Mullen MD [Physician, Endocrinology] - 1-3 days Geronimo Chaney MD [Physician, Family Practice] - 1-3 days Discharge Diet: Diabetic Discharge Activity: Resume usual activity Patient Instructions: Pancreatitis (DC), Diabetic Ketoacidosis (DC), Lipid Profile (GEN), Abdominal Pain (ED), Opioid Safety, Patient Portal & [place] Instructions Activity Restrictions/Additional Instructions: -Please monitor your blood sugars closely -Monitor your blood sugars 4 times daily as after meals -Please record your blood sugars, and a blood sugar log -Continue your home insulin pump start at roughly 4 to 5 PM -If your blood sugar is greater than 500 go to the emergency room -If your blood sugar is less than 60 or at anytime you feel lightheaded or dizzy or diaphoretic or have chest palpitations check your blood sugar, and eat a hard candy or drink orange juice and go immediately to the emergency room -Remember hypoglycemia kills, so if his blood sugar is less than 60 we have to increase it by taking in a sugary meal such as a hard candy or orange juice and go to the emergency room -If you have any questions please call us where here to help - Please follow-up with primary care provider with your blood sugar logs - Please follow-up with endocrinology - Please continue medications for your hypertriglyceridemia - Please hydrate well at least 2 L of fluid a day - Slowly advance diet, avoid fatty meals, avoid highly glycemic meals - Have primary care provider recheck triglycerides in 1 week - Follow-up with GI in [place] for pancreatic pseudocyst Discharge Attestations Time Spent in Discharge Care*: greater than 30 min Quality Metrics Clinical Quality Measures [ No reported AMI, CVA or VTE this stay] Coding Level of Care Code 34482 Total time (in minutes) for Discharge: 45 Diagnoses DKA (diabetic ketoacidosis) E11.10 Diabetes mellitus complication detail: without coma Diabetes mellitus type: type 2 Hypertriglyceridemia E78.1 Pancreatitis K85.90 Acute pancreatitis complication: no infection or necrosis Chronicity: acute Pancreatitis type: unspecified pancreatitis type Type 1 diabetes mellitus E10.9
== END 2025-10-22 13:25 | disposition home or self-care (01) | DRG 637 ==
LOC: ER 12:33 → ICU 13:39 → MEDSURG 10-21 16:35
PROVIDERS: Family Medicine; Admitting Provider Family Medicine; Emergency Provider Physician Assistant; Visit Provider Family Medicine
DX: E10.10 Type 1 diabetes mellitus with ketoacidosis without coma (principal); K85.80 Other acute pancreatitis without necrosis or infection; K86.3 Pseudocyst of pancreas; E78.1 Pure hyperglyceridemia; Z96.41 Presence of insulin pump (external) (internal); T38.3X6A Underdosing of insulin and oral hypoglycemic [antidiabetic] drugs, initial encounter; Z79.4 Long term (current) use of insulin; Z91.128 Patient's intentional underdosing of medication regimen for other reason
CPT/HCPCS: 36415; 36416; 36600; 71045; 74018; 74177; 76705; 80048; 80051; 80053; 80061; 80306; 80307; 81001; 82009; 82330; 82803; 82805; 82962; 83036; 83605; 83690; 83721; 83735; 84100; 84145; 84443; 84478; 84703; 85025; 86140; 87040; 93005; 96365; 96366; 96367; 96372; 96375; 96376; 99285; J0780; J1171; J1650; J1815; J2405; J2470; J2543; J2765; J3480; J7030; J7799; J9999

== ENCOUNTER 2025-11-22 10:28 | Emergency (ER) | payer SELFPAY ==
--- NOTE | 2025-11-22 10:30 | XRR_ITS ---
PROCEDURE INFORMATION: Exam: XR Chest Exam date and time: 11/22/2025 12:00 PM Age: 25 years old Clinical indication: Cough TECHNIQUE: Imaging protocol: Radiologic exam of the chest. Views: 1 view. COMPARISON: 1. CR XR chest 1V portable [id number] 10/19/2025 12:[address] angio chest PE protcl [id number] 11/06/2020 1:37 AM FINDINGS: Lungs: Lungs are well aerated. Pulmonary vascularity is normal. No suspicious pulmonary nodule/s. No focal consolidation is appreciated. Pleural spaces: No pleural effusion. No pneumothorax. Heart/Mediastinum: Unremarkable. No cardiomegaly. Diaphragm: Elevation of the left hemidiaphragm which is more prominent on current study than previous exams. Bones/joints: Unremarkable. XR/XR chest 1V portable [id number] IMPRESSION: 1. No acute findings. 2. Elevation of the left hemidiaphragm which is more prominent on current study than previous exams. This is nonspecific and may be related to patient body habitus as well as splenomegaly or left lower lobe atelectasis.
--- OUTSIDE RECORDS SUMMARY | 2025-11-22 10:33 | XMS_ITS | Clinical Summary ---
Author Organization [facility] Address [address] [place] [address] Care Team Providers Care Body Die Maker Name Role Phone Unavailable Primary Care Provider [...] daily.. 400 Each 3 8 Active Insulin [place], Disposable, 31 gauge x 1/4 Needle TO [...] Active verapamil HCl (VERAPAMIL, BULK, MISC) by Misc.(Non-Drug; Combo Route) route daily. Active predniSONE (DELTASONE) 5 mg tablet 50 mg x 2 days 40 mg x 2 days 30 mg x 2 days 20 mg x 2 days 10 mg x 2 days 5 mg x 2 days 62 Tablet Active Active Problems Problem Noted Date Diagnosed [...] Encounters Date Type Department Care Team Description 11/10/2025 External Device Data [facility]STRACTION Provider, Abstract 11/10/2025 External Device Data [facility] Provider, Abstract 11/03/2025 External Device Data [facility] Provider, Abstract 10/23/2025 Orders Only [facility]- [address] [place] [id number] Hill Barrios MD Acute pancreatitis, unspecified complication status, unspecified pancreatitis type (Primary Dx); Hypertriglyceridemia ; Pancreatic pseudocyst 09/30/2025 External Device Data [facility]STRACTION Provider, Abstract 09/23/2025 External Device Data [facility]STRA[facility] Provider, Abstract from Last 3 Months Immunizations Immunization Administration Dates Next Due Influenza Vaccine Quad Split 3+ Yrs IM [facility] 09/04 Influenza Vaccine Quad Split 3+ Yrs Im 8 Influenza Vaccine Quad Split 3+ Yrs PF IM [facility] Family History Medical History Relation Name Comments [...] on file Legal Sex Female 7:00 AM DEVELOPMENT ENG Gender Identity Not on file Sexual Orientation [...] RATIO, RANDOM UR Routine 11/28/2019 3:57 PM DEVELOPMENT ENG from Last 3 Months or Most Recently Relevant to Health Maintenance Results * (ABNORMAL) HEMOGLOBIN A1C (06/28/2024 8:45 AM CDT) HEMOGLOBIN A1C 8.7(H) <=5.6 % 06/30/2024 10:18 AM CDT [facility] Fingerprint [facility] EST. AVG GLUCOSE, A1C 203 mg/dL 06/30/2024 10:18 AM CDT [facility] Fingerprint [facility] Blood Venipuncture / Unknown 06/28/2024 8:45 AM CDT 06/28/2024 9:05 AM CDT Narrative [facility] - 06/30/2024 10:18 AM CDT HGB A1C INTERPRETATION NORMAL: <5.7% PRE-DIABETES: 5.7 - 6.4% DIABETES: 6.5% OR GREATER Gilbert Ling MD CHEMISTRY ORDERABLES Final R esult [facility] BLADIMIR # [id number] [address] [facility] [place] [address] * (ABNORMAL) LIPID PANEL (06/28/2024 8:45 AM CDT) [facility] CHOLESTEROL 111 <200 mg/dL 06/28/2024 9:55 AM CDT [facility] TRIGLYCERIDE 141 <150 mg/dL 06/28/2024 9:55 AM CDT [facility] HDL 24(L) 40 - 59 mg/dL 06/28/2024 9:55 AM CDT [facility] LDL CALCULATED 59 <100 mg/dL 06/28/2024 9:55 AM CDT [facility] NON-HDL CHOLESTEROL 87 <130 mg/dL 06/28/2024 9:55 AM T [facility] Blood Venipuncture / Unknown 06/28/2024 8:45 AM CDT 06/28/2024 9:11 AM CDT Narrative [facility] - 06/28/2024 9:55 AM CDT TOTAL CHOLESTEROL [...] Ling MD CHEMISTRY ORDERABLES Final R esult Performing Organization Address [facility]/ZIP Co de Phone Number [facility] CLIA # [id number] [id number] [place] [address] * (ABNORMAL) MICROALBUMIN/CREATININE RATIO, RANDOM UR (11/28/2019 3:57 PM DEVELOPMENT ENG) MICROALBUMIN, URINE 2.1 No Reference Range mg/dL 11/28/2019 5:08 PM [facility] CREATININE, URINE 36.9 29.0 - 226.0 mg/dL 11/28/2019 5:08 PM [facility] Comment:Reference Range vari es with fluid intake and diet. MICROALBUMIN/ CREAT RATIO, UR 56.9(H) <25.0 mg/g 11/28/2019 5:08 PM [facility] Urine URINE SPECIMEN OBTAINED BY CLEAN CATCH PROCEDURE / Unknown Collection / Unknown 11/28/2019 3:57 PM DEVELOPMENT ENG 11/28/2019 3:58 PM DEVELOPMENT ENG Narrative [facility] - 11/28/2019 5:08 PM DEVELOPMENT ENG Condition Microalbumin/Creat ratio Normal Males <17 Normal Females <25 Microalbuminuria Males 17-299 Microalbuminuria Females 25-299 Overt proteinuria >=300 Maria Elena LIPSCOMB URINE ORDERABLES Final Result Performing Organization Address [facility]/ZIP Co de Phone Number [facility] Fingerprint [facility] CLIA# [id number] [address] [place] [address] from Last 3 Months or Most Recently Relevant to Health Maintenance Insurance [facility] Advance Directives For more information, please contact: [phone] * Full Code (Latest Code Status on File) Date Activated Date Inactivated Comments 06/28/2024 12:26 AM 06/28/2024 4:59 PM
[2025-11-22 10:44] VITALS: BP 145/95; PULSE 99; TEMP 36.7; O2SAT 97
--- NOTE | 2025-11-22 11:45 | ED_ITS ---
HPI - URI/Sore Throat 2 General: Chief Complaint: Upper Respiratory Infection Stated Complaint: coughing, wheezing Time Seen by Provider: 11/22/25 11:37 Source: patient Mode of arrival: ambulatory Limitations: no limitations History of Present Illness: 25-year-old female states yesterday she been having cough congestion along with chills and bodyaches. States had some mild dyspnea denies any known fevers has been exposed to sick contacts with similar. States she has had some abdominal pain in her upper quadrant as well its been mild in nature. She denies any vomiting or diarrhea. Denies any worse improved factors Related Data Home Medications ?Medication ?Instructions ?Recorded ?Confirmed Humalog U-200 See Rx Instructions .Route . COMPLEX 10/19/25 10/19/25 Previous Rx's ?Medication ?Instructions ?Recorded glucagon HCl 1 mg solution for 1 mg IM Q20M PRN hypogl ycemia #1 ea 10/22/25 injection (Glucagon (HCl) Emergency Kit) oseltamivir 75 mg capsule (Tamiflu) 75 mg PO BID 5 day s #10 caps 11/22/25 Allergies Allergy/AdvReac Type Severity Reaction Status Date / Time No Known Allergies Allergy Verified 11/22/25 10:50 Review of Systems 2 Resp: Reports: non-productive cough PFSH ED 2 PFSH: Medical History (Updated 11/22/25 @ 13:13 by Sandee Steele MD) DM type 2 (diabetes mellitus, type 2) Surgical History No pertinent past surgical history Physical Exam 2 Const: COMMON NORMALS: no acute distress, patient oriented x3 and healthy appearing HENMT: COMMON NORMALS: normocephalic and atraumatic HEAD & SCALP: n ormocephalic and atraumatic THROAT: posterior oropharynx normal Neck/C-Spine: COMMON NORMALS: full ROM and supple Chest: COMMONS NORMALS: normal inspection of the chest and normal palpation of entire chest wall Resp: COMMON NORMALS: normal respiratory effort, No retractions, No use of accessory muscles and clear to auscultation bilaterally AUSCULTATION: clear to auscultation bilaterally Cardio: COMMON NORMALS: regular rate, regular rhythm and No murmurs present (Cardio) RATE: regular rate RHYTHM: regular rhythm GI: COMMON NORMALS: Normal to inspection, nondistended, normoactive bowel sounds present, Soft to palpation, non-tender and no masses PALPATION: Yes Soft to palpation Extremity: COMMON NORMALS: normal to inspection and full ROM Neuro: COMMON NORMALS: patient oriented x3, moves all extremities and no focal motor deficits Psych: COMMON NORMALS: mental status grossly normal, Normal thought process present and cooperative THOUGHT PROCESS: Normal thought process present Skin: COMMON NORMALS: no rashes or lesions noted and no wounds GENERAL SKIN EXAM: no rashes or lesions noted Course 2 Vital Signs: Vital signs: Vital Signs Temperature 98.0 F 11/22/25 10:44 Pulse Rate 114 H 11/22/25 13:11 Respiratory Rate 20 H 11/22/25 13:11 Blood Pressure 155/91 11/22/25 13:11 Pulse Oximetry 97 11/22/25 13:11 Oxygen Delivery Mo thod Room Air 11/22/25 13:11 MDM - URI/Sore Throat Medical Decision Making Patient presents here with cough congestion also some upper abdominal pain differential includes pneumonia, viral infection, pancreatitis. Abdominal exam here was fairly benign and labs show no acute abnormalities no signs of pancreatitis x-ray interpreted by me shows no signs of pneumonia patient did test positive for influenza likely causing her symptoms we will start her on Tamiflu her vitals have been stable she stable for discharge return if worsening she understands agrees to plan. Medical Records I reviewed the patient's medical records. Lab Data I reviewed the patient's lab results. 11/22/25 12:34 11/22/25 12:34 Radiology Impressions Chest X-Ray 11/22/25 10:30 IMPRESSION: 1. No acute findings. 2. Elevation of the left hemidiaphragm which is more prominent on current study than previous exams. This is nonspecific and may be related to patient body habitus as well as splenomegaly or left lower lobe atelectasis. Laboratory Results WBC 4.17 10^3/uL (3.29-11.43) 11/22/25 12:34 RBC 4.71 10^6/uL (3.85-5.65) 11/22/25 12:34 Hgb 13.20 g/dL (11.27-16.99) 11/22/25 12:34 Hct 40.7 % (36-47) 11/22/25 12:34 MCV 86.4 fl (85-98) 11/22/25 12:34 MCH 28.0 pg (27-33) 11/22/25 12:34 MCHC 32.4 g/dL (30-55) 11/22/25 12:34 RDW 14.8 % (12.1-15.1) 11/22/25 12:34 Plt Count 185 10^3/cmm (157-399) 11/22/25 12:34 MPV 10.3 fL (7.4-10.4) 11/22/25 12:34 Neut % (Auto) 62.6 % 11/22/25 12:34 Lymph % (Auto) 25.9 % 11/22/25 12:34 Addison % (Auto) 8.4 % 11/22/25 12:34 Eos % (Auto) 1.4 % 11/22/25 12:34 Baso % (Auto) 0.5 % 11/22/25 12:34 Neut # (Auto) 2.61 10^3/uL (1.8-7.7) 11/22/25 12:34 Lymph # (Auto) 1.1 10^3/uL (0.8-4.8) 11/22/25 12:34 Addison # (Auto) 0.4 10^3/uL (0.2-0.9) 11/22/25 12:34 Eos # (Auto) 0.1 10^3/uL (0.0-0.8) 11/22/25 12:34 Baso # (Auto) 0.0 10^3/uL (0.0-0.1) 11/22/25 12:34 Nucleated RBC % (auto) 0 % 11/22/25 12:34 Nucleated RBCs # 0.0 /100WBC 11/22/25 12:34 Sodium 131 mmol/L (136-145) L 11/22/25 12:34 Potassium 3.9 mmol/L (3.5-5.1) 11/22/25 12:34 Chloride 92 mmol/L (98-107) L 11/22/25 12:34 Carbon Dioxide 19 mmol/L (22-29) L 11/22/25 12:34 Anion Gap 23.9 (5-19) H 11/22/25 12:34 BUN 11 mg/dL (6-20) 11/22/25 12:34 Creatinine 0.6 mg/dL (0.5-0.9) 11/22/25 12:34 GFR Calculation 122.8 mL/min (90-130) 11/22/25 12:34 Glucose 397 mg/dL (65-115) H 11/22/25 12:34 Calculated Osmolality 288 mOsm/kg (285-295) 11/22/25 12:34 Calcium 9.0 mg/dL (8.5-10.5) 11/22/25 12:34 Total Bilirubin 0.4 mg/dL (0.15-1.2) 11/22/25 12:34 AST 12 U/L (0-32) 11/22/25 12:34 ALT 17 U/L (0-33) 11/22/25 12:34 Alkaline Phosphatase 132 U/L (35-105) H 11/22/25 12:34 Total Protein 7.5 g/dL (6.6-8.7) 11/22/25 12:34 Albumin 3.7 g/dL (3.5-5.2) 11/22/25 12:34 Globulin 3.8 g/dL (1.3-4.6) 11/22/25 12:34 Lipase 78 U/L (13-60) H 11/22/25 12:34 Influenza A (PCR) Negative (Negative) 11/22/25 11:00 Influenza Type B (PCR) Positive (Negative) 11/22/25 11:00 RSV (PCR) Negative (Negative) 11/22/25 11:00 SARS-CoV-2 (PCR) Negative (Negative) 11/22/25 11:00 All radiology interpretation(s) finalized by discharge Discharge Plan Discharge Patient Disposition: Home Clinical Impression: Influenza Condition: Stable Prescriptions: New oseltamivir [Tamiflu] 75 mg capsule 75 mg PO BID 5 Days Qty: 10 0RF No Action Humalog U-200 See Rx Instructions .ROUTE .COMPLEX Rx Instructions: Inject up to 260 units daily via insulin pump. 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
[2025-11-22 11:54] LABS: Respiratory Syncytial Virus Ce NEGATIVE (Negative); SARS-CoV-2 PCR NEGATIVE (Negative)
[2025-11-22 11:59] VITALS: PULSE 103; RESP 18; O2SAT 98
[2025-11-22 12:42] LABS: Hematocrit 40.7 % (36-47); Hemoglobin 13.20 g/dL (11.27-16.99); Mean Corpuscular HGB Conc 32.4 g/dL (30-55); Mean Corpuscular Hemoglobin 28.0 pg (27-33); Mean Corpuscular Volume 86.4 fl (85-98); Nucleated Red Blood Cells % 0 %; Platelet Count 185 10^3/cmm (157-399); Red Blood Count 4.71 10^6/uL (3.85-5.65); White Blood Count 4.17 10^3/uL (3.29-11.43)
[2025-11-22 12:56] LABS: Alanine Aminotransferase 17 U/L (0-33); Albumin Level 3.7 g/dL (3.5-5.2); Alkaline Phosphatase 132 U/L (35-105); Anion Gap 23.9 (5-19); Aspartate Amino Transferase 12 U/L (0-32); Blood Urea Nitrogen 11 mg/dL (6-20); Calcium 9.0 mg/dL (8.5-10.5); Carbon Dioxide 19 mmol/L (22-29); Chloride 92 mmol/L (98-107); Globulin 3.8 g/dL (1.3-4.6); Glucose 397 mg/dL (65-115); Lipase 78 U/L (13-60); Osmolality Calculated 288 mOsm/kg (285-295); Potassium 3.9 mmol/L (3.5-5.1); Sodium 131 mmol/L (136-145); Total Protein 7.5 g/dL (6.6-8.7)
[2025-11-22 13:11] VITALS: BP 155/91; PULSE 114; RESP 20; O2SAT 97
[2025-11-22 13:30] VITALS: BP 155/91; PULSE 105; O2SAT 98
== END 2025-11-22 13:30 | disposition home or self-care (01) ==
PROVIDERS: Emergency Provider Emergency Medicine
DX: J10.1 Influenza due to other identified influenza virus with other respiratory manifestations (principal); Z11.52 Encounter for screening for COVID-19; E11.9 Type 2 diabetes mellitus without complications
CPT/HCPCS: 36415; 71045; 80053; 83690; 85025; 87637; 94640; 96374; 99284; J1100; J9999